=== PATIENT | female | born 1990 | race Caucasian/White ===

== ENCOUNTER 2016-05-22 09:14 | Day surgery (SDC) | payer OTHER ==
[2016-05-21 08:31] VITALS: BMI 30.1
[~2016-05-22 09:14] MED LIST: DEXAMETHASONE SOD PHOSPHATE 10 MG/ML 1 ML VIAL IV ONE; HYDROmorphone 1 MG/ML 1 ML SYRINGE IVP PRN; LACTATED RINGERS 1,000 ML IV SCH; MIDAZOLAM 2 MG/2 ML VIAL IV PRN; ONDANSETRON 4 MG/2 ML VIAL IVP ONE; SCOPOLAMINE 1.5MG/72HR PATCH TRANSDERM ONE; ceFAZolin 2 GM in SODIUM CHLORIDE 0.9% 100 ML IVPB ONE
--- NOTE | 2016-05-22 09:43 | P.GSHP ---
History of Present Illness H&P Date: 05/22/16 25 yrs old female presents with RUQ pain worsened with fatty food. US showed gallstones. No jaundice, fever, loss of weight . CBC and CMP normal ROS Additionally reports: Constitutional: No fever, chills or rigors. No weight loss or loss of appetite. HEENT: No difficulty with hearing, vision and swallowing. Lymphatic: No axillary, inguinal and cervical swellings. Endocrine: No thyroid disorders. Denies history of diabetes. Respiratory: No chest pain, shortness of breath, and cough. No hemoptysis. Cardiovascular: No palpitations, irregular HR Gastrointestinal: Denies heartburn. No change in bowel habits. No nausea or vomiting. Genitourinary: No increase in urinary frequency or urgency. No hematuria. Musculoskeletal: No back pain, joint stiffness or pain. Neurologic: No history of seizure disorder and headaches. Psychiatric: Denies depression or anxiety . No suicidal ideation. Hematologic: Denies any abnormal mucosal bleeding or easy bruising. Physical Exam Patient is a 25-year-old female. Constitutional: General Appearance: healthy-appearing, well-nourished, and well- developed. Level of Distress: NAD. Ambulation: ambulating normally. Psychiatric: Insight: good judgement. Orientation: to time, place, and person. Head: Head: normocephalic and atraumatic. Eyes: Lids and Conjunctivae: no discharge or pallor and non-injected. Sclerae: non-icteric. ENMT: Oropharynx: moist mucous membranes. Abdomen: Bowel Sounds: normal. Inspection and Palpation: no tenderness or guarding and soft and non-distended. Musculoskeletal:: Motor Strength and Tone: normal and normal tone. Joints, Bones , and Muscles: normal movement of all extremities. Extremities: no cyanosis or edema. Neurologic: Gait and Station: normal gait and station. Cranial Nerves: grossly intact. Assessment / Plan 1. Symptomatic cholelithiasis 2. Informed consent obtained from the patient after explaining the risks, benefits and potential complications of laparoscopic cholecystectomy including bleeding, infection, DVT , inadvertent bile duct injury and possibility of converting to open 3. Patient demonstrated understanding of the procedure and agreed to undergo lap liliana possible open 4. Expected post op course discussed including no heavy lifting >10 lbs for 6 weeks post surgery Preop orders: 1. Ancef 2 gm IVPB x1 2. Bilateral lower extremity SCDs 3. Heparin 5000 Units SQ injection x1 1. Cholelithiasis without obstruction K80.20: Calculus of gallbladder without cholecystitis without obstruction Past Medical History Past Medical History: Hypertension, Thyroid Disorder Additional Past Medical History / Comment(s): LOW THYROID, GESTATIONAL DIABETES , PALPITATIONS., STATES SHE SEEN PCP YESTERDAY (05/20/16) AND POSSIBLE UTI- STATES PCP SPOKE WITH DR MAHONEY & FLEX WEBSTER., NAUSEA. History of Any Multi-Drug Resistant Organisms: None Reported Past Surgical History: Adenoidectomy, Section Additional Past Surgical History / Comment(s): [place] teeth removal, colonization of cervix, LEEP PROCEDURE. Past Anesthesia/Blood Transfusion Reactions: No Reported Reaction Additional Past Anesthesia/Blood Transfusion Reaction / Comment(s): states as child aspirated during adenoidectomy (AGE 8) Past Psychological History: No Psychological Hx Reported Smoking Status: Never smoker Past Alcohol Use History: Rare Past Drug Use History: None Reported - Past Family History Mother Family Medical History: No Reported History Medications and Allergies Home Medications Medication Instructions Recorded Confirmed Type Labetalol [Trandate] 100 mg PO BID 02/23/15 05/20/16 History Ibuprofen [Motrin] 600 mg PO Q8HR PRN MDD ONLY DOSE 05/20/16 05/20/16 History IN LAST WEEK Levothyroxine Sodium [Synthroid] 150 mcg PO DAILY 05/20/16 05/20/16 History Nitrofurantoin Monohyd/M-Cryst 100 mg PO Q12HR 05/21/16 05/21/16 History [Macrobid] Allergies Allergy/AdvReac Type Severity Reaction Status Date / Time No Known Allergies Allergy Verified 05/20/16 14:49
[2016-05-22] MEDS ORDERED: LIDOCAINE 1% 20 ML VIAL (10MG/ML) FOR IV START INTRADERMA ONE (10:05)
[2016-05-22] MEDS ORDERED: HEPARIN SODIUM,PORCINE 5,000 UNIT/ML 1 ML VIAL SQ ONE (10:41)
[2016-05-22] MEDS ORDERED: MIDAZOLAM 2 MG/2 ML VIAL ONE (11:08)
[2016-05-22] MEDS ORDERED: PROPOFOL 10 MG/ML 20 ML VIAL IV ONE (11:08)
[2016-05-22] MEDS ORDERED: SUCCINYLCHOLINE CHLORIDE 100 MG/5 ML SYR IV ONE (11:08)
[2016-05-22] MEDS ORDERED: HYDROmorphone (PF) 1 MG/ML ONE (11:08)
[2016-05-22] MEDS ORDERED: NEOSTIGMINE 1 MG/ML 10 ML VIAL ONE (11:08)
[2016-05-22] MEDS ORDERED: GLYCOPYRROLATE 0.2 MG/ML 2 ML VIAL ONE (11:08)
[2016-05-22] MEDS ORDERED: ROCURONIUM BROMIDE 10 MG/ML 10 ML VIAL IV ONE (11:08)
[2016-05-22] MEDS ORDERED: fentaNYL (PF) 50 MCG/ML 2 ML AMP ONE (11:08)
[2016-05-22] MEDS ORDERED: LABETALOL 5 MG/ML VIAL MDV ONE (11:08)
[2016-05-22] MEDS ORDERED: LIDOCAINE 1% INJ 10MG/ML (20 ML MDV) ONE (11:08)
[2016-05-22] MEDS ORDERED: BUPIVACAIN-EPI 0.25%-1:200,000 30 ML VIAL SQ ONE ×3 (11:29)
[2016-05-22] MEDS ORDERED: LACTATED RINGERS 1,000 ML IV ONE (11:52)
[2016-05-22 12:13] VITALS: TEMP 97
--- NOTE | 2016-05-22 12:34 | P.OP ---
Date of Procedure: 05/22/16 Preoperative Diagnosis: Symptomatic cholelithiasis Hypertension Postoperative Diagnosis: Same Procedure(s) Performed: Laparoscopic cholecystectomy Anesthesia: NIKKI, local Surgeon: Safia Puente Pathology: other Condition: stable Disposition: PACU Indications for Procedure: 25 years old female presents with right upper quadrant pain. Ultrasound showed gallstones. Informed consent obtained and patient elected to undergo laparoscopic cholecystectomy possible open. The risks, benefits and potential complications include bleeding, infection, inadvertent bile duct injury were explained and patient did undergo the procedure Description of Procedure: The patient was brought to the operating room and placed in supine position with both arms out. General anesthesia with endotracheal intubation was performed as per anesthesia team. Chlorhexidine was used to prep the abdomen followed by application of sterile drapes. A timeout was performed to verify correct patient and correct procedure. Patient was confirmed to receive perioperative IV antibiotics , heparin 5000 units subcutaneous injection and bilateral SCDs were placed. A 5 mm skin incision was made below the left costal margin at the anterior axillary line. A Veress needle was inserted and pneumoperitoneum was established to a pressure of 15 mmHg. A 5 mm Optiview trocar was loaded on a 5 mm 30 laparoscope and the peritoneal cavity was entered under direct vision using the Optiview technique. Additional 5 mm trocar was placed in the supraumbilical location and two 5 mm trocars along the right subcostal margin. The left 5 mm trocar was upsized to 10mm. The patient was placed in reverse Trendelenburg with right side up. The fundus of the gallbladder was grasped with an atraumatic grasper and was retracted over the dome of the liver. The infundibulum was grasped with an atraumatic grasper and retracted towards the pelvis to expose the Calot's triangle. Lateral and medial peritoneal attachment of the gallbladder bladder was dissected. Circumferential dissection was carried out around the cystic artery and the cystic duct to obtain adequate length for clip application. All the surrounding fibrofatty tissue were removed. Critical view was obtained with cystic duct and cystic artery as the only two structures entering the gallbladder. Two clips were applied on the patient's side and one on the specimen side on the cystic duct first followed by the cystic artery. Endoshears were used to divide the cystic duct and the cystic artery. The gallbladder was taken off the liver bed using a L-hook. It was placed in an endocatch specimen bag and removed through the 10mm port. The gallbladder was passed off as a specimen. The abdominal cavity was inspected. The clips on the cystic duct and cystic artery stump were intact and no bleeding noted from the liver bed. All the trocar sites were examined and no evidence of bleeding. The 10mm port site was closed with two transfascial sutures of 0 Vicryl using a Rajinder Madi device. The pneumoperitoneum was evacuated and all the trocars were removed. Local anesthetic was infiltrated along the trocar sites and incisions were closed using 4-0 Monocryl followed by application of Dermabond skin glue. The sponge, instrument and needle count were correct x2. Patient was extubated and taken to post anesthesia care unit in stable condition.
[2016-05-22] MEDS ORDERED: PROMETHAZINE INJ 25 MG/ML 1 ML VIAL IVPB ONE (13:31)
[2016-05-22] MEDS ORDERED: HYDROcodone/APAP 5-325MG 1 EACH TAB PO ONE ×2 (13:50→14:00)
[2016-05-22 14:19] VITALS: RESP 18
[2016-05-22 15:25] VITALS: BP 116/72; PULSE 68
== END 2016-05-22 15:26 | disposition home or self-care (01) ==
LOC: OR 09:14
PROVIDERS: ATTEND Surgery
DX: K80.20 Calculus of gallbladder without cholecystitis without obstruction (principal); I10 Essential (primary) hypertension; E07.9 Disorder of thyroid, unspecified; Z79.2 Long term (current) use of antibiotics; Z79.1 Long term (current) use of non-steroidal anti-inflammatories (NSAID); Z79.899 Other long term (current) drug therapy
CPT/HCPCS: 81025; 47562; J2250; J1644; J1100; J2550; J2710; J0690; J2405; J2001; J3010; J1170; J0330; J2704; 88304

== ENCOUNTER → 2016-11-13 | Outpatient (CLI) | payer OTHER ==
[2016-11-19 19:38] LABS: Total, Free (MN + NMN) 113 pg/mL (< OR = 205)
== END | disposition home or self-care (01) ==
LOC: LABWHC1 08:57
PROVIDERS: ATTEND Internal Medicine
DX: I15.9 Secondary hypertension, unspecified (principal)
CPT/HCPCS: 36415; 82088; 83835; 84244

== ENCOUNTER → 2016-12-17 | Outpatient (CLI) | payer OTHER | END | disposition home or self-care (01) | LOC: LABWHC1 08:37 | PROVIDERS: ATTEND Internal Medicine | DX: E03.9 Hypothyroidism, unspecified (principal) | CPT/HCPCS: 36415; 84443 ==

== ENCOUNTER → 2017-02-16 | Outpatient (CLI) | payer OTHER ==
[2017-02-16 17:44] LABS: Basophils % (A) 1 %; Eosinophils # (A) 0.1 k/uL (0-0.7); Eosinophils % (A) 2 %; HCT 39.6 % (34.0-46.0); Lymphocytes # (A) 2.1 k/uL (1.0-4.8); Lymphocytes % (A) 28 %; MCH 29.2 pg (25.0-35.0); MCHC 32.7 g/dL (31.0-37.0); MCV 89.3 fL (80.0-100.0); Mean Platelet Volume 7.3; Monocytes # (A) 0.4 k/uL (0-1.0); Monocytes % (A) 6 %; Neutrophils # (A) 4.8 k/uL (1.3-7.7); Neutrophils % (A) 62 %; Platelet Count 260 k/uL (150-450); RBC 4.43 m/uL (3.80-5.40); RDW 13.3 % (11.5-15.5); WBC 7.7 k/uL (3.8-10.6)
== END | disposition home or self-care (01) ==
LOC: LABPAT 16:18
PROVIDERS: ATTEND Obstetrics & Gynecology
DX: Z01.812 Encounter for preprocedural laboratory examination (principal); O03.9 Complete or unspecified spontaneous abortion without complication
CPT/HCPCS: 36415; 85025

== ENCOUNTER → 2017-02-16 | Outpatient (CLI) | payer OTHER ==
[2017-02-16 18:17] LABS: T4, Free (Free Thyroxine) 1.22 ng/dL (0.78-2.19)
== END | disposition home or self-care (01) ==
LOC: LABWHC1 16:48
PROVIDERS: ATTEND Internal Medicine Endocrinology, Diabetes & Metabolism
DX: E06.3 Autoimmune thyroiditis (principal)
CPT/HCPCS: 36415; 84439; 84443; 85025

== ENCOUNTER 2017-02-19 07:29 | Day surgery (SDC) | payer OTHER ==
[2017-02-18 08:49] VITALS: BMI 29.5
[~2017-02-19 07:29] MED LIST changes: -HYDROmorphone 1 MG/ML 1 ML SYRINGE IVP PRN; +MORPHINE SULFATE 4 MG/ML SYRINGE IV PRN; +Pre Op ABX Message 1 EACH MISC MISCELLANE ONE; -ceFAZolin 2 GM in SODIUM CHLORIDE 0.9% 100 ML IVPB ONE
[2017-02-19] MEDS ORDERED: LIDOCAINE 1% INJ 10MG/ML (20 ML MDV) ONE (08:36)
[2017-02-19] MEDS ORDERED: KETOROLAC 30 MG/ML 1 ML VIAL ONE (08:36)
[2017-02-19] MEDS ORDERED: fentaNYL (PF) 50 MCG/ML 2 ML AMP ONE (08:36)
[2017-02-19] MEDS ORDERED: MIDAZOLAM 2 MG/2 ML VIAL ONE (08:36)
[2017-02-19] MEDS ORDERED: PROPOFOL 10 MG/ML 20 ML VIAL IV ONE (08:36)
[2017-02-19] MEDS ORDERED: KETOROLAC 30 MG/ML 1 ML VIAL IVP PRN (09:13)
[2017-02-19] MEDS ORDERED: ONDANSETRON 4 MG/2 ML VIAL IVP PRN (09:13)
[2017-02-19] MEDS ORDERED: IBUPROFEN 600 MG TAB PO PRN (09:13)
[2017-02-19] MEDS ORDERED: Acetaminophen-Codeine 300-30mg TAB PO PRN ×2 (09:13)
[2017-02-19] MEDS ORDERED: SIMETHICONE 80 MG CHEWABLE PO PRN (09:13)
[2017-02-19] MEDS ORDERED: diphenhydrAMINE 50 MG/ML 1 ML VIAL IVP PRN (09:13)
[2017-02-19] MEDS ORDERED: METOCLOPRAMIDE 5 MG/ML 2 ML VIAL IVP PRN (09:13)
[2017-02-19] MEDS ORDERED: LACTATED RINGERS 1,000 ML IV SCH (09:15)
[2017-02-19 09:19] VITALS: TEMP 97.6
[2017-02-19] MEDS ORDERED: SODIUM CHLORIDE 0.9% 1,000 ML IV ONE (09:19)
--- NOTE | 2017-02-19 09:20 | P.OP ---
Date of Procedure: 02/19/17 Preoperative Diagnosis: #1. 7+ weeks missed Postoperative Diagnosis: Same Procedure(s) Performed: #1. Dilation and aspiration curettage Anesthesia: other (Gen. by face mask) Surgeon: Fam Celeste Estimated Blood Loss (ml): 150 IV fluids (ml): 650 Urine output (ml): 50 Pathology: other (Intrauterine contents) Condition: stable Disposition: PACU Operative Findings: Preoperative pelvic examination demonstrated a roughly 8 week retroverted mobile normal shaped uterus with normal adnexa bilaterally. Intraoperatively, the uterus sounded to approximately 10 cm. A #9 curved aspiration curet was utilized and tissue was seen passing through the tubing on the first 3 passes with aspiration while not on the last. Using the sharp curet, the typical gritty texture was encountered. There was no ongoing bleeding at the end of the surgery and the uterus felt appreciably smaller. Description of Procedure: The patient was prepped and draped in usual fashion after general anesthesia was administered by the anesthesiologist. A weighted speculum was placed and the bladder drained of approximately 50 mL of clear inna urine. The anterior lip of the cervix was grasped with a single-tooth tenaculum and uterus sounded to approximately 10 cm. Serial dilation was carried out to admit a #9 curved aspiration curet. This was placed to the fundus of the uterus and suction applied. After adequate suction had been built, thorough circumferential aspiration curettage was carried out from the fundus to the cervix with tissue being seen passing through the tubing on the first 2 passes. A sharp curette was then introduced into the in vitro cavity and thorough sharp curettage carried out in circumferential fashion with no significant tissue returned and the typical gritty texture felt throughout. Another pass was made with the aspiration curet which time one small piece of tissue seen passing through the tubing necessitating a further pass with the aspiration curet. This final pass demonstrated no further tissue. All instrumentation was removed. There is no ongoing active bleeding either from the cervix or from the tenaculum site. Estimated blood loss for the entire case was approximately 150 mL. There were no complications. All sponge, instrument, and needle counts were correct. The patient tolerated the procedure well and proceeded to the recovery room in stable condition.
[2017-02-19 10:34] VITALS: BP 127/89; PULSE 88; RESP 18
== END 2017-02-19 10:58 | disposition home or self-care (01) ==
LOC: OR 07:29
PROVIDERS: ATTEND Obstetrics & Gynecology
DX: O02.1 Missed abortion (principal); I10 Essential (primary) hypertension; E03.9 Hypothyroidism, unspecified; Z79.1 Long term (current) use of non-steroidal anti-inflammatories (NSAID); Z79.899 Other long term (current) drug therapy; Z82.49 Family history of ischemic heart disease and other diseases of the circulatory system
CPT/HCPCS: 59820; 86900; 86901; 86850; 36415; J2250; J1100; J2405; J2001; J3010; J1885; J2704; 88305; 88341; 88342

== ENCOUNTER 2017-06-15 17:21 | Emergency (ER) | payer OTHER ==
[2017-06-15 17:41] VITALS: TEMP 98.6
[2017-06-15 18:09] LABS: Appearance,Urine Clear (Clear); Bacteria,Urine Occasional /hpf; Bilirubin,Urine Negative (Negative); Blood,Urine Small (Negative); Color,Urine Yellow; Glucose,Urine (UA) Negative (Negative); Ketones,Urine Negative (Negative); Leukocyte Esterase,Urine Negative (Negative); Mucus,Urine Rare /hpf; Nitrite,Urine Negative (Negative); PH, Urine 6.5 (5.0-8.0); Protein,Urine Negative (Negative); RBC,Urine 4 /hpf (0-5); Specific Gravity,Urine 1.012 (1.001-1.035); Squamous Epithelial Cell,Urine 1 /hpf (0-4); Urobilinogen,Urine <2.0 mg/dL (<2.0); WBC,Urine 1 /hpf (0-5)
--- NOTE | 2017-06-15 18:12 | ED ---
General Adult HPI - General Stated complaint: Vaginal Bleeding 12 weeks Time Seen by Provider: 06/15/17 17:36 Source: patient, RN notes reviewed Mode of arrival: ambulatory Limitations: no limitations - History of Present Illness Initial comments: 26-year-old female presents emergency from chief complaint of vaginal bleeding early . Patient believes that she is approximately 12 weeks . Patient's ENVIRONMENTAL SERVICES FLOOR TECH is Dr. Smith. Patient states that she's had several cervical surgery secondary to cancer cells. She did have an appointment an ultrasound at 7 weeks for this and was advised to come in for any bleeding or abnormal symptoms. She states she started bleeding she states her office is closed so she came the emergency Department. She has minimal cramping. Patient is A2. She states that she had a twin with miscarriage in February. Denies any dysuria no hematuria. - Related Data Home Medications Medication Instructions Recorded Confirmed Labetalol [Trandate] 100 mg PO BID 02/23/15 06/15/17 Levothyroxine Sodium [Synthroid] 150 mcg PO DAILY 05/20/16 06/15/17 Doxylamine Succinate [Unisom] 25 mg PO HS 06/15/17 06/15/17 Pyridoxine [Vitamin B-6] 50 mg PO HS 06/15/17 06/15/17 Allergies Allergy/AdvReac Type Severity Reaction Status Date / Time No Known Allergies Allergy Verified 06/15/17 17:48 Review of Systems ROS Statement: Those systems with pertinent positive or pertinent negative responses have been documented in the HPI. ROS Other: All systems not noted in ROS Statement are negative. Past Medical History Past Medical History: Hypertension, Thyroid Disorder Additional Past Medical History / Comment(s): gestational diabetes History of Any Multi-Drug Resistant Organisms: None Reported Past Surgical History: Adenoidectomy, Section, Cholecystectomy Additional Past Surgical History / Comment(s): [place] teeth removal, CERVICAL SURGERIES Past Anesthesia/Blood Transfusion Reactions: Motion Sickness, Postoperative Nausea & Vomiting (PONV) Additional Past Anesthesia/Blood Transfusion Reaction / Comment(s): "states as child aspirated during adenoidectomy" Past Psychological History: No Psychological Hx Reported Smoking Status: Never smoker Past Alcohol Use History: None Reported Past Drug Use History: None Reported - Past Family History Mother Family Medical History: No Reported History General Exam Limitations: no limitations General appearance: alert, in no apparent distress Head exam: Present: atraumatic, normocephalic, normal inspection Eye exam: Present: normal appearance, PERRL, EOMI. Absent: scleral icterus, conjunctival injection, periorbital swelling ENT exam: Present: normal exam, normal oropharynx, mucous membranes moist Neck exam: Present: normal inspection, full ROM. Absent: tenderness, meningismus, lymphadenopathy Respiratory exam: Present: normal lung sounds bilaterally. Absent: respiratory distress, wheezes, rales, rhonchi, stridor Cardiovascular Exam: Present: regular rate, normal rhythm, normal heart sounds. Absent: systolic murmur, diastolic murmur, rubs, gallop, clicks GI/Abdominal exam: Present: soft, normal bowel sounds. Absent: distended, tenderness, guarding, rebound, rigid Course Vital Signs 06/15/17 17:34 Temperature 98.6 F Pulse Rate 103 H Respiratory 20 Rate Blood Pressure 167/78 O2 Sat by Pulse 99 Oximetry Medical Decision Making - Medical Decision Making 26-year-old female presents for vaginal bleeding early . Patient had hCG, urinalysis and ultrasound. Ultrasound does not reveal any comp locating fractures. Patient does not require Auralgan. Patient will be discharged follow-up dr Smith tomorrow return parameters were discussed. - Lab Data Lab Results 06/15/17 Range/Units 17:40 Urine Color Yellow Urine Appearance Clear (Clear) Urine pH 6.5 (5.0-8.0) Ur Specific [place] 1.012 (1.001-1.035) Urine Protein Negative (Negative) Urine Glucose (UA) Negative (Negative) Urine Ketones Negative (Negative) Urine Blood Small H (Negative) Urine Nitrite Negative (Negative) Urine Bilirubin Negative (Negative) Urine Urobilinogen <2.0 (<2.0) mg/dL Ur Leukocyte Esterase Negative (Negative) Urine RBC 4 (0-5) /hpf Urine WBC 1 (0-5) /hpf Ur Squamous Epith Cells 1 (0-4) /hpf Urine Bacteria Occasional H (None) /hpf Urine Mucus Rare H (None) /hpf Disposition Clinical Impression: Threatened miscarriage Disposition: HOME SELF-CARE Condition: Stable Instructions: Threatened Miscarriage (ED) Additional Instructions: Please return to the Emergency Department if symptoms worsen or any other concerns. Is patient prescribed a controlled substance at d/c from ED?: No Referrals: Dori Montero MD [Primary Care Provider] - 1-2 days Time of Disposition: 18:48
--- NOTE | 2017-06-15 18:26 | US ---
EXAMINATION TYPE: Transabdominal DATE OF EXAM: 05/11/17 COMPARISON: NONE CLINICAL HISTORY: Pain. EXAM PERFORMED: Transabdominal (TA) EXAM MEASUREMENTS: GESTATIONAL AGE / DATING Physician Established: (11 weeks/5 days) EDC: 12/30/2017 Dates by LMP: (11 weeks/5 days) EDC: 12/30/2017 Dates by First Scan: Not available Dates by Current Scan for: (11 weeks/ days) EDC: 12/29/17 MATERNAL ANATOMY Uterus: 10.5 x 9.4 x 10.4 Right Ovary: 3.1 x 2.4 x 2.1 Left Ovary: not visualized Post CDS / Adnexa: wnl Presence of free fluid: no GESTATION / SURVEY CRL: 5.2 (11 weeks/6 days) Yolk Sac (normal less than 6mm): not seen on today's study Heart Rate: 174 bpm Rhythm: Normal IUP: Viable IUP Date of LMP: 03/25/17 Beta HcG (if available): Not available at this time IMPRESSION: Ultrasound gestational age is 11 weeks 6 days. I see no complicating process.
[2017-06-15 19:14] VITALS: BP 136/84; PULSE 83; RESP 18
== END 2017-06-15 19:14 | disposition home or self-care (01) ==
LOC: EC 17:21
DX: O20.0 Threatened abortion (principal); O16.1 Unspecified maternal hypertension, first trimester; O99.281 Endocrine, nutritional and metabolic diseases complicating pregnancy, first trimester; E07.9 Disorder of thyroid, unspecified; Z79.899 Other long term (current) drug therapy; Z86.32 Personal history of gestational diabetes; Z90.49 Acquired absence of other specified parts of digestive tract; Z98.890 Other specified postprocedural states; Z3A.12 12 weeks gestation of pregnancy
CPT/HCPCS: 36415; 76801; 76817; 81001; 84702; 99284

== ENCOUNTER 2017-12-23 09:06 | Inpatient (IN) | payer OTHER ==
[2017-12-23] MEDS ORDERED: ceFAZolin IN SWFI 2 GM/20 ML SYRINGE IVP ONE (09:58)
[2017-12-23] MEDS ORDERED: CITRIC ACID-SODIUM CITRATE 15 ML CUP PO ONE (09:58)
[2017-12-23] MEDS: LACTATED RINGERS 1,000 ML IV SCH ×4 (10:10→22:09)
[2017-12-23 10:25] LABS: Basophils % (A) 0 %; Eosinophils # (A) 0.2 k/uL (0-0.7); Eosinophils % (A) 2 %; HCT 33.3 % (34.0-46.0); HGB 11.1 gm/dL (11.4-16.0); Hypochromasia Slight; Lymphocytes # (A) 1.8 k/uL (1.0-4.8); Lymphocytes % (A) 17 %; MCH 26.9 pg (25.0-35.0); MCHC 33.4 g/dL (31.0-37.0); MCV 80.6 fL (80.0-100.0); Mean Platelet Volume 6.9; Monocytes # (A) 0.5 k/uL (0-1.0); Monocytes % (A) 5 %; Neutrophils % (A) 74 %; Platelet Count 273 k/uL (150-450); Poikilocytosis Slight; RBC 4.13 m/uL (3.80-5.40); WBC 10.8 k/uL (3.8-10.6)
[2017-12-23 10:39] VITALS: BMI 41.5
[2017-12-23] MEDS ORDERED: MORPHINE SULFATE (PF) 0.3 MG/0.3 ML SYR ONE (12:04)
[2017-12-23] MEDS ORDERED: OXYTOCIN 10 UNIT/ML 1 ML VIAL ONE (12:04)
[2017-12-23] MEDS ORDERED: NALBUPHINE 10 MG/ML VIAL (10ML MDV) ONE (12:04)
[2017-12-23] MEDS ORDERED: KETOROLAC 30 MG/ML 1 ML VIAL ONE (12:04)
[2017-12-23] MEDS ORDERED: fentaNYL (PF) 50 MCG/ML 2 ML AMP ONE (12:04)
[2017-12-23] MEDS ORDERED: ONDANSETRON 4 MG/2 ML VIAL ONE (12:04)
[2017-12-23] MEDS ORDERED: NALOXONE 0.4 MG/ML 1 ML VIAL IV PRN (13:10)
[2017-12-23] MEDS ORDERED: SIMETHICONE 80 MG CHEWABLE PO PRN (13:10)
[2017-12-23] MEDS ORDERED: diphenhydrAMINE 50 MG/ML 1 ML VIAL IVP PRN ×4 (13:10→16:17)
[2017-12-23] MEDS ORDERED: METOCLOPRAMIDE 5 MG/ML 2 ML VIAL IVP PRN (13:10)
[2017-12-23] MEDS ORDERED: KETOROLAC 30 MG/ML 1 ML VIAL IVP PRN (13:10)
[2017-12-23] MEDS ORDERED: HYDROcodone/APAP 5-325MG 1 EACH TAB PO PRN (13:10)
[2017-12-23] MEDS ORDERED: LANOLIN CREAM 5 GM TUBE TOPICAL PRN (13:10)
[2017-12-23] MEDS ORDERED: ZOLPIDEM 5 MG TAB PO PRN (13:10)
[2017-12-23] MEDS ORDERED: ONDANSETRON 4 MG/2 ML VIAL IVP PRN (13:10)
[2017-12-23] MEDS ORDERED: ACETAMINOPHEN TAB 325 MG TAB PO PRN (13:10)
[2017-12-23] MEDS ORDERED: HYDROcodone/APAP 7.5-325MG 1 EACH TAB PO PRN (13:10)
[2017-12-23] MEDS ORDERED: diphenhydrAMINE 50 MG CAP PO PRN (13:10)
[2017-12-23] MEDS ORDERED: diphenhydrAMINE 25 MG CAP PO PRN (13:10)
[2017-12-23] MEDS ORDERED: OXYTOCIN 20 UNITS/1000 ML NS 1,000 ML IV SCH (13:15)
--- NOTE | 2017-12-23 13:17 | P.HPOB ---
History of Present Illness H&P Date: 12/23/17 Chief Complaint: 39-0/7 weeks, previous section 2, requesting repeat The patient is a 27-year-old 5 para 2021 admitted at 39-0/7 weeks as established by last menstrual period and confirmed by seven-week ultrasound. She is admitted for repeat low transverse section having undergone 2 previous sections. She at this time is declining intraoperative tubal ligation. She is a known chronic hypertensive and has been on labetalol 100 mg twice daily through the majority the with an increased to 3 times daily at the end of the third trimester. Blood pressures have been relatively stable and there is no evidence of preeclampsia. She additionally has fairly significant hypothyroidism for which she sees an wedger and gluer. On admission , all signs are reassuring. Group B strep status is negative. Obstetrical history : 5 para 2021 with 2 term deliveries and 2 early miscarriages one of which required D&C. Current statistics are listed in history of present illness. EDC of 12/30/2017 was established by last menstrual period and confirmed by seven-week ultrasound. Laboratory workup done Schutze blood type of O+ with a negative antibody screen. Rubella status is immune. The remainder of the workup was within normal limits. Early Glucola was normal as was second trimester Glucola. Thyroid function tests were normal throughout the as well. Group B strep status is negative. Gynecologic history: Unremarkable with no history of any significant infections to include STDs that she has remote history of HSV for which she has had no lesions during the and has not required prophylaxis. Review of Systems Review of systems is confined to history of present illness. Past Medical History Past Medical History: Hypertension, Thyroid Disorder Additional Past Medical History / Comment(s): gestational diabetes-NOT WITH THIS History of Any Multi-Drug Resistant Organisms: None Reported Past Surgical History: Adenoidectomy, Section, Cholecystectomy Additional Past Surgical History / Comment(s): [place] teeth removal, CERVICAL SURGERIES Past Anesthesia/Blood Transfusion Reactions: Motion Sickness, Postoperative Nausea & Vomiting (PONV) Additional Past Anesthesia/Blood Transfusion Reaction / Comment(s): "states as child aspirated during adenoidectomy" Past Psychological History: No Psychological Hx Reported Smoking Status: Never smoker Past Alcohol Use History: None Reported Past Drug Use History: None Reported - Past Family History Mother Family Medical History: Hypertension Medications and Allergies Home Medications Medication Instructions Recorded Confirmed Type Labetalol [Trandate] 100 mg PO BID 02/23/15 12/23/17 History Levothyroxine Sodium [Synthroid] 150 mcg PO DAILY 05/20/16 12/23/17 History Allergies Allergy/AdvReac Type Severity Reaction Status Date / Time No Known Allergies Allergy Verified 12/22/17 10:21 Exam Vital Signs Temp Pulse Resp BP Pulse Ox 12/23/17 09:55 97.7 F 115 H 18 140/87 99 Intake and Output 12/22/17 12/23/17 12/23/17 22:59 06:59 14:59 Other: Weight 113.398 kg In general, this is a well-developed, well-nourished white female in no acute distress. Her heart has a regular rhythm and rate without murmur. Her lungs are clear to auscultation bilateral in all bergeron. Her abdomen is gravid, nondistended, has normal active bowel sounds, soft, nontender, and without any palpable masses aside from uterine fundus. Her extremities are without any cyanosis, clubbing, or significant edema and are nontender to palpation bilaterally. Digital cervical examination is deferred. Results Result Diagrams: 12/23/17 10:13 Abnormal Lab Results - Last 24 Hours (Table) 12/23/17 Range/Units 10:13 WBC 10.8 H (3.8-10.6) k/uL Hgb 11.1 L (11.4-16.0) gm/dL Hct 33.3 L (34.0-46.0) % Neutrophils # 8.0 H (1.3-7.7) k/uL Assessment and Plan (1) Previous section Current Visit: Yes Status: Acute Code(s): Z98.89 - OTHER SPECIFIED POSTPROCEDURAL STATES * DO NOT USE * SNOMED Code(s): 922918881 (2) Term Current Visit: Yes Status: Acute Code(s): Z34.80 - ENCOUNTER FOR SUPRVSN OF NORMAL , UNSP TRIMESTER SNOMED Code(s): 39438912 Plan: The patient is admitted for repeat low transverse section. The risks and complications of the procedure have been thoroughly discussed and she has understood and agreed to proceed. She has declined intraoperative tubal ligation at this time.
--- NOTE | 2017-12-23 13:22 | P.OP ---
Date of Procedure: 12/23/17 Preoperative Diagnosis: #1. 39-0/7 weeks, previous section 2, requesting repeat #2. Chronic hypertension Postoperative Diagnosis: Same Procedure(s) Performed: #1. Repeat low transverse section Anesthesia: spinal Surgeon: Fam Celeste Head Of Commission Department #1: Bushra Lira Estimated Blood Loss (ml): 600 IV fluids (ml): 700 Urine output (ml): 400 Pathology: other (Placenta) Condition: stable Disposition: floor Operative Findings: Intraoperatively, the patient was noted to have some moderate scarring at the level of the fascia and muscles. The uterus itself demonstrated very little scarring. She was delivered of a viable 9 lbs. 11 oz. baby girl with Apgars of 9 at 1 minute and 9 at 5 minutes delivered in the occiput anterior position. The placenta was delivered manually, intact, and grossly normal although it was calcified with a grossly normal three-vessel cord. The uterus, tubes, and ovaries were otherwise entirely normal to inspection. Description of Procedure: The patient was prepped and draped in usual fashion after spinal anesthesia was administered by the anesthesiologist. A Pfannenstiel incision was made through pre-existing scar and extended into the abdominal cavity without difficulty. There was a mild to moderate amount of scarring at the level of fascia and rectus muscles. The bladder peritoneum was noted to be well distal to the site of the intended incision and was left intact. A 2 cm incision was made in the transverse plane of the lower uterine segment to enter the uterus at which time clear fluid was noted. The incision was extended both directions using the bandage scissors. The head was delivered up and through the incision where the nose and mouth were thoroughly suctioned. The remainder of the infant was delivered onto the field where the cord was doubly clamped, cut, and the passed for resuscitative measures with weight and Apgars as noted above. A segment of cord was doubly clamped, cut, and set aside should cord gases become necessary. The placenta was delivered manually and intact as noted above. The uterus was exteriorized and the interior cavity of the uterus swept of any remaining placental or membranous fragments. The margins of the uterine incision were grasped with Moore clamps and the incision closed in 2 layers. The first layer was a running locking stitch of 0 chromic catgut followed by a running imbricating layer of 0 chromic catgut without occasional locked stitch for hemostasis were necessary. Following the second layer there was a site at the left angle which appeared to be somewhat oozy and was made hemostatic with a [id number] stitch of 0 chromic catgut. The posterior cul -de-sac was suctioned using a guard and the uterine and ovarian findings were normal as noted above. The uterus was replaced within the abdominal cavity and the gutters swept of any remaining blood, fluid, or clot. The incision was reexamined and found to be hemostatic. The parietal peritoneum was loosely reapproximated in the layer of muscles examined and made hemostatic with the Bovie. The fascia was closed with 2 running stitches of 0 Vicryl proceeding from the lateral margins to the midpoint. The subcutaneous tissues were irrigated, made hemostatic with the Bovie, and reapproximated with a running stitch of 30 plain catgut. The skin was reapproximated with a running subcuticular stitch of 4-0 Vicryl followed by half-inch Steri-Strips placed with Mastisol. Estimated blood loss for the entire case was approximately 600 mL. There were no complications. All sponge, instrument, and needle counts were correct. The patient tolerated the procedure well and proceeded to the recovery room in stable condition. Both mother and infant are resting comfortably in recovery.
[2017-12-23] MEDS ORDERED: diphenhydrAMINE 50 MG/ML 1 ML VIAL IVP ONE (16:30)
[2017-12-23] MEDS: LABETALOL 100 MG TAB PO SCH (22:07)
[2017-12-23] MEDS: SENNOSIDES-DOCUSATE SODIUM 1 EACH TAB PO SCH (22:07)
[2017-12-24] MEDS: LACTATED RINGERS 1,000 ML IV SCH (07:21)
[2017-12-24 08:26] LABS: Basophils % (A) 0 %; Eosinophils # (A) 0.1 k/uL (0-0.7); Eosinophils % (A) 1 %; HCT 28.6 % (34.0-46.0); Hypochromasia Slight; Lymphocytes # (A) 1.1 k/uL (1.0-4.8); Lymphocytes % (A) 10 %; MCH 26.9 pg (25.0-35.0); MCHC 33.6 g/dL (31.0-37.0); Mean Platelet Volume 7.6; Monocytes # (A) 0.7 k/uL (0-1.0); Monocytes % (A) 6 %; Neutrophils # (A) 9.3 k/uL (1.3-7.7); Neutrophils % (A) 81 %; Platelet Count 247 k/uL (150-450); Poikilocytosis Slight; RBC 3.58 m/uL (3.80-5.40); RDW 14.8 % (11.5-15.5); WBC 11.5 k/uL (3.8-10.6)
[2017-12-24 08:36] LABS: HGB 9.6 gm/dL (11.4-16.0)
[2017-12-24] MEDS: SENNOSIDES-DOCUSATE SODIUM 1 EACH TAB PO SCH ×2 (09:29→19:59)
[2017-12-24] MEDS: LABETALOL 100 MG TAB PO SCH ×2 (09:29→20:02)
--- NOTE | 2017-12-24 10:58 | P.PNOBGPC ---
Subjective - Subjective Patient reports: Reports appetite normal, Reports voiding normally, Reports pain well controlled, Reports ambulating normally : doing well Objective - Vital Signs Latest vital signs: Vital Signs Temp Pulse Resp BP Pulse Ox 12/24/17 08:00 98.7 F 96 16 118/74 96 12/24/17 04:00 98 F 98 15 125/80 12/24/17 00:00 98 F 100 15 122/80 12/23/17 20:00 98 F 101 H 15 137/87 12/23/17 15:10 98.3 F 99 18 118/66 96 12/23/17 14:40 97.6 F 96 18 123/64 98 12/23/17 14:10 98.9 F 93 18 122/68 97 12/23/17 13:55 98.1 F 91 18 135/61 98 12/23/17 13:40 98.4 F 86 18 135/59 97 12/23/17 13:25 99.3 F 85 18 129/77 100 12/23/17 13:10 98.0 F 96 18 127/78 100 Intake and Output 12/23/17 12/24/17 12/24/17 22:59 06:59 14:59 Output Total 500 900 0 Balance -500 -900 0 Output: Urine 500 900 Uretheral (Vazquez) 300 Stool 0 Other: # Voids 1 2 - Exam Extremities: Present: normal Abdomen: Present: normal appearance, soft. Absent: distention, tenderness Incision: Present: normal, dry, intact Uterus: Present: normal, firm (The uterine fundus is tonic and nontender low the umbilicus.) - Labs Labs: Abnormal Lab Results - Last 24 Hours (Table) 12/24/17 Range/Units 07:13 WBC 11.5 H (3.8-10.6) k/uL RBC 3.58 L (3.80-5.40) m/uL Hgb 9.6 L D (11.4-16.0) gm/dL Hct 28.6 L (34.0-46.0) % Neutrophils # 9.3 H (1.3-7.7) k/uL Assessment and Plan (1) Previous section Current Visit: Yes Status: Acute Code(s): Z98.89 - OTHER SPECIFIED POSTPROCEDURAL STATES * DO NOT USE * SNOMED Code(s): 853584839 (2) Term Current Visit: Yes Status: Acute Code(s): Z34.80 - ENCOUNTER FOR SUPRVSN OF NORMAL , UNSP TRIMESTER SNOMED Code(s): 80517354 (3) S/P section Current Visit: Yes Status: Acute Code(s): Z98.89 - OTHER SPECIFIED POSTPROCEDURAL STATES * DO NOT USE * SNOMED Code(s): 548100075 Plan: Continue routine postoperative care. I have encouraged her to ambulate in the halls routinely. I anticipate discharge home tomorrow pending no complications.
--- NOTE | 2017-12-24 11:22 | P.PN ---
Progress Note - Text Progress Note Date: 12/24/17 Postoperative day 1 status post section under spinal anesthesia, and intrathecal morphine given for postoperative analgesia, patient doing well, there is no anesthesia related complications, Patient had no headache, vital signs stable , Assessment and plan= postop day 1 status post , doing well there is no anesthesia related complication.
[2017-12-24] MEDS: IBUPROFEN 600 MG TAB PO PRN ×2 (15:19→22:19)
[2017-12-25] MEDS: SENNOSIDES-DOCUSATE SODIUM 1 EACH TAB PO SCH (08:30)
[2017-12-25] MEDS: LABETALOL 100 MG TAB PO SCH (08:30)
[2017-12-25] MEDS: IBUPROFEN 600 MG TAB PO PRN (08:31)
[2017-12-25 09:15] VITALS: BP 129/90; PULSE 116; RESP 20; TEMP 98.1
--- NOTE | 2017-12-25 11:03 | P.DS ---
Providers Date of admission: 12/23/17 09:50 Expected date of discharge: 12/25/17 Attending physician: Fam Celeste Primary care physician: Stated None - Discharge Diagnosis(es) (1) Hypothyroid Current Visit: Yes Status: Acute (2) Hypertension affecting Current Visit: Yes Status: Acute (3) Previous section Current Visit: Yes Status: Acute (4) S/P section Current Visit: Yes Status: Acute (5) Term Current Visit: Yes Status: Acute Hospital Course: This is a 27-year-old 5 now para 3023 woman who is admitted at 39-0/7 weeks gestation for a scheduled repeat low transverse section. was complicated by maternal hypothyroidism and hypertension. Following admission she was taken to the operating room where she underwent a repeat low transverse section with findings significant for a female infant weighing 9 lbs. 11 oz. with Apgars of 9 at 1 minute and 9 at 5 minutes. Please see the operative report for details. Her course was unremarkable. Her postoperative blood pressures were in the 1 teens to 120s over 70s range for the most part with labetalol 100 mg twice a day. She did have significant lower extremity swelling however no redness or pain suggestive of DVT. Her incision was well healing and her lochia was decreasing. She was therefore discharged home on postoperative day #2 with routine instructions for postoperative care and follow-up. She will be seen in the office in 2 weeks' time for postop visit and blood pressure check. She is recommended to continue her labetalol 100 mg twice daily. Procedures: Repeat low transverse section Patient Condition at Discharge: Good Plan - Discharge Summary Discharge Rx Participant: No New Discharge Prescriptions: No Action Labetalol [Trandate] 100 mg PO BID Levothyroxine Sodium [Synthroid] 150 mcg PO DAILY Discharge Medication List Labetalol [Trandate] 100 mg PO BID 02/23/15 [History] Levothyroxine Sodium [Synthroid] 150 mcg PO DAILY 05/20/16 [History] Follow up Appointment(s)/Referral(s): Fam Celeste MD [STAFF PHYSICIAN] - 2 Weeks Activity/Diet/Wound Care/Special Instructions: Follow-up in 2 weeks after surgery in the office. Call the office with any concerning signs or symptoms including fever greater than 101, severe abdominal pain, heavy vaginal bleeding, signs of wound infection, increased swelling or redness of the lower extremities, signs of depression. No driving for 2 weeks after surgery. No heavy lifting or vigorous activity until reevaluated in the office. No intercourse for 6 weeks after delivery. Discharge Disposition: HOME SELF-CARE
== END 2017-12-25 12:20 | disposition home or self-care (01) | DRG 787 ==
LOC: 4FBP 09:50
PROVIDERS: ADMIT Obstetrics & Gynecology; ATTEND Obstetrics & Gynecology
PROC: 10D00Z1 Extraction of Products of Conception, Low, Open Approach (ICD-10-PCS; principal; 2017-12-23 12:00)
DX: O34.211 Maternal care for low transverse scar from previous cesarean delivery (principal); O10.02 Pre-existing essential hypertension complicating childbirth; Z37.0 Single live birth; Z3A.39 39 weeks gestation of pregnancy; Z82.49 Family history of ischemic heart disease and other diseases of the circulatory system; Z90.49 Acquired absence of other specified parts of digestive tract; O99.284 Endocrine, nutritional and metabolic diseases complicating childbirth; E03.9 Hypothyroidism, unspecified; Z86.32 Personal history of gestational diabetes; Z79.890 Hormone replacement therapy; Z79.899 Other long term (current) drug therapy
CPT/HCPCS: 85025; 86850; 86900; 86901; 88307

== ENCOUNTER 2018-08-14 08:43 | Emergency (ER) | payer OTHER ==
[2018-08-14 08:52] VITALS: RESP 18
--- NOTE | 2018-08-14 09:38 | ED ---
Eye Problem HPI - General Chief complaint: Eye Problems Stated complaint: Vision issues Time Seen by Provider: 08/14/18 08:55 Source: patient Mode of arrival: ambulatory Limitations: no limitations - History of Present Illness Initial comments: 27-year-old female presents emergency Department with chief complaint of visual disturbance. Patient states that this has been going on for a while but she has noticed it more last few days. She states when object is moving in front of her and she does not follow object she states it seems to be delayed or blurred. She occasionally states there is some jumpy vision. Patient does admit that she's had some ocular issues in the past in which she had a vitrous humor detachment and ophthalmology has told her that she may have visual floaters or defects for several years. Patient denies any ocular pain. She does wear glasses and has not had her Jennie checked in a while. Patient states this is symptoms that she's never exhibited for she states that she did go on cool which made her more worried that she has some sort of brain tumor. Patient has underlying Jed's disease and states that her TSH has been rapidly fluctuating in which she is also concerned about this. Patient denies any doubl e vision or current blurred vision at rest. She states that she tracts object that she has no symptoms. She has no with a headache, chest pain or shortness of breath patient does notice that symptoms are worsened with fatigue especially rate and afternoon to nighttime. Patient also adds that she was started on hydrochlorothiazide in April and states that she believes this may be contrary to her symptoms. She can think back she may have had symptoms for several months - Related Data Home Medications Medication Instructions Recorded Confirmed Labetalol [Trandate] 100 mg PO BID 02/23/15 12/23/17 Levothyroxine Sodium [Synthroid] 150 mcg PO DAILY 05/20/16 12/23/17 Allergies Allergy/AdvReac Type Severity Reaction Status Date / Time No Known Allergies Allergy Verified 08/14/18 08:52 Review of Systems ROS Statement: Those systems with pertinent positive or pertinent negative responses have been documented in the HPI. ROS Other: All systems not noted in ROS Statement are negative. Past Medical History Past Medical History: Hypertension, Thyroid Disorder Additional Past Medical History / Comment(s): gestational diabetes History of Any Multi-Drug Resistant Organisms: None Reported Past Surgical History: Adenoidectomy, Section, Cholecystectomy Additional Past Surgical History / Comment(s): [place] teeth removal, CERVICAL SURGERIES Past Anesthesia/Blood Transfusion Reactions: Motion Sickness, Postoperative Nausea & Vomiting (PONV) Additional Past Anesthesia/Blood Transfusion Reaction / Comment(s): "states as child aspirated during adenoidectomy" Past Psychological History: No Psychological Hx Reported Smoking Status: Never smoker Past Alcohol Use History: None Reported Past Drug Use History: None Reported - Past Family History Mother Family Medical History: Hypertension General Exam Limitations: no limitations General appearance: alert, in no apparent distress Head exam: Present: atraumatic, normocephalic, normal inspection Eye exam: Present: normal appearance, PERRL, EOMI, nystagmus (Looking to left). Absent: scleral icterus, conjunctival injection, periorbital swelling Pupils: Present: normal accommodation ENT exam: Present: normal exam, normal oropharynx, mucous membranes moist, TM's normal bilaterally Neck exam: Present: normal inspection, full ROM. Absent: tenderness, menin gismus, lymphadenopathy Respiratory exam: Present: normal lung sounds bilaterally. Absent: respiratory distress, wheezes, rales, rhonchi, stridor Cardiovascular Exam: Present: regular rate, normal rhythm, normal heart sounds. Absent: systolic murmur, diastolic murmur, rubs, gallop, clicks GI/Abdominal exam: Present: soft, normal bowel sounds. Absent: distended, tenderness, guarding, rebound, rigid Neurological exam: Present: alert, oriented X3, CN II-XII intact, reflexes normal, other (Finger to nose intact bilaterally without shooting). Absent: motor sensory deficit Skin exam: Present: warm, dry, intact, normal color. Absent: rash Course Vital Signs 08/14/18 08:45 Temperature 98.5 F Pulse Rate 103 H Respiratory 18 Rate Blood Pressure 154/100 O2 Sat by Pulse 98 Oximetry Medical Decision Making - Medical Decision Making 19-year-old female presented for visual disturbance. Patient symptoms have been ongoing this is not acute. Patient has no acute visual changes on visual acuity. Patient had extensive workup including CTs it today. There is no clot no aneurysm no masses. Patient has normal lab work. The advised that she should follow-up with her, marshall, historic interpreter Dr. wylie She may need further evaluation. She agrees this plan she does have slight nystagmus which may be causing her symptoms. - Lab Data Result diagrams: 08/14/18 09:35 08/14/18 09:35 Lab Results 08/14/18 08/14/18 08/14/18 Range/Units 09:35 09:35 09:35 WBC 6.3 (3.8-10.6) k/uL RBC 5.31 (3.80-5.40) m/uL Hgb 14.4 (11.4-16.0) gm/dL Hct 42.8 (34.0-46.0) % MCV 80.7 (80.0-100.0) fL MCH 27.1 (25.0-35.0) pg MCHC 33.6 (31.0-37.0) g/dL RDW 15.0 (11.5-15.5) % Plt Count 271 (150-450) k/uL Neutrophils % 64 % Lymphocytes % 27 % Monocytes % 5 % Eosinophils % 2 % Basophils % 1 % Neutrophils # 4.1 (1.3-7.7) k/uL Lymphocytes # 1.7 (1.0-4.8) k/uL Monocytes # 0.3 (0-1.0) k/uL Eosinophils # 0.1 (0-0.7) k/uL Basophils # 0.0 (0-0.2) k/uL Sodium 142 (137-145) mmol/L Potassium 3.7 (3.5-5.1) mmol/L Chloride 103 (98-107) mmol/L Carbon Dioxide 26 (22-30) mmol/L Anion Gap 13 mmol/L BUN 14 (7-17) mg/dL Creatinine 0.79 (0.52-1.04) mg/dL Est GFR (CKD-EPI)AfAm >90 (>60 ml/min/1.73 sqM) Est GFR (CKD-EPI)NonAf >90 (>60 ml/min/1.73 sqM) Glucose 116 H (74-99) mg/dL Calcium 9.9 (8.4-10.2) mg/dL Magnesium 2.2 (1.6-2.3) mg/dL Total Bilirubin 0.6 (0.2-1.3) mg/dL AST 22 (14-36) U/L ALT 27 (9-52) U/L Alkaline Phosphatase 88 (38-126) U/L Total Protein 8.2 (6.3-8.2) g/dL Albumin 5.2 H (3.5-5.0) g/dL TSH 3.030 (0.465-4.680) mIU/L Urine Color Urine Appearance (Clear) Urine pH (5.0-8.0) Ur Specific [place] (1.001-1.035) Urine Protein (Negative) Urine Glucose (UA) (Negative) Urine Ketones (Negative) Urine Blood (Negative) Urine Nitrite (Negative) Urine Bilirubin (Negative) Urine Urobilinogen (<2.0) mg/dL Ur Leukocyte Esterase (Negative) Urine RBC (0-5) /hpf Urine WBC (0-5) /hpf Ur Squamous Epith Cells (0-4) /hpf Urine Bacteria (None) /hpf Urine Mucus (None) /hpf Urine HCG, Qual Not Detected (Not Detectd) 08/14/18 Range/Units 09:35 WBC (3.8-10.6) k/uL RBC (3.80-5.40) m/uL Hgb (11.4-16.0) gm/dL Hct (34.0-46.0) % MCV (80.0-100.0) fL MCH (25.0-35.0) pg MCHC (31.0-37.0) g/dL RDW (11.5-15.5) % Plt Count (150-450) k/uL Neutrophils % % Lymphocytes % % Monocytes % % Eosinophils % % Basophils % % Neutrophils # (1.3-7.7) k/uL Lymphocytes # (1.0-4.8) k/uL Monocytes # (0-1.0) k/uL Eosinophils # (0-0.7) k/uL Basophils # (0-0.2) k/uL Sodium (137-145) mmol/L Potassium (3.5-5.1) mmol/L Chloride (98-107) mmol/L Carbon Dioxide (22-30) mmol/L Anion Gap mmol/L BUN (7-17) mg/dL Creatinine (0.52-1.04) mg/dL Est GFR (CKD-EPI)AfAm (>60 ml/min/1.73 sqM) Est GFR (CKD-EPI)NonAf (>60 ml/min/1.73 sqM) Glucose (74-99) mg/dL Calcium (8.4-10.2) mg/dL Magnesium (1.6-2.3) mg/dL Total Bilirubin (0.2-1.3) mg/dL AST (14-36) U/L ALT (9-52) U/L Alkaline Phosphatase (38-126) U/L Total Protein (6.3-8.2) g/dL Albumin (3.5-5.0) g/dL TSH (0.465-4.680) mIU/L Urine Color Yellow Urine Appearance Clear (Clear) Urine pH 6.0 (5.0-8.0) Ur Specific [place] 1.027 (1.001-1.035) Urine Protein Trace H (Negative) Urine Glucose (UA) Negative (Negative) Urine Ketones Negative (Negative) Urine Blood Moderate H (Negative) Urine Nitrite Negative (Negative) Urine Bilirubin Negative (Negative) Urine Urobilinogen <2.0 (<2.0) mg/dL Ur Leukocyte Esterase Negative (Negative) Urine RBC 150 H (0-5) /hpf Urine WBC 8 H (0-5) /hpf Ur Squamous Epith Cells 2 (0-4) /hpf Urine Bacteria Rare H (None) /hpf Urine Mucus Occasional H (None) /hpf Urine HCG, Qual (Not Detectd) Disposition Clinical Impression: Visual disturbance, Nystagmus Disposition: HOME SELF-CARE Condition: Stable Instructions (If sedation given, give patient instructions): Blurred Vision (ED) Additional Instructions: Please return to the Emergency Department if symptoms worsen or any other concerns. Is patient prescribed a controlled substance at d/c from ED?: No Referrals: Giorigo Cruz MD [Primary Care Provider] - 1-2 days Smith Wylie MD [STAFF PHYSICIAN] - 1-2 days Time of Disposition: 10:58
[2018-08-14 09:48] LABS: Basophils % (A) 1 %; Eosinophils # (A) 0.1 k/uL (0-0.7); Eosinophils % (A) 2 %; HCT 42.8 % (34.0-46.0); HGB 14.4 gm/dL (11.4-16.0); Lymphocytes # (A) 1.7 k/uL (1.0-4.8); Lymphocytes % (A) 27 %; MCH 27.1 pg (25.0-35.0); MCHC 33.6 g/dL (31.0-37.0); MCV 80.7 fL (80.0-100.0); Mean Platelet Volume 6.7; Monocytes # (A) 0.3 k/uL (0-1.0); Monocytes % (A) 5 %; Neutrophils # (A) 4.1 k/uL (1.3-7.7); Neutrophils % (A) 64 %; Platelet Count 271 k/uL (150-450); RBC 5.31 m/uL (3.80-5.40); WBC 6.3 k/uL (3.8-10.6)
[2018-08-14 09:57] LABS: ALT 27 U/L (9-52); AST 22 U/L (14-36); African American GFR (CKD) >90 (>60 ml/min/1.73 sqM); Albumin 5.2 g/dL (3.5-5.0); Alkaline Phosphatase 88 U/L (38-126); Anion Gap 13 mmol/L; Blood Urea Nitrogen 14 mg/dL (7-17); Calcium 9.9 mg/dL (8.4-10.2); Carbon Dioxide 26 mmol/L (22-30); Chloride 103 mmol/L (98-107); Glucose 116 mg/dL (74-99); Magnesium 2.2 mg/dL (1.6-2.3); Potassium 3.7 mmol/L (3.5-5.1); Sodium 142 mmol/L (137-145); Total Bilirubin 0.6 mg/dL (0.2-1.3); Total Protein 8.2 g/dL (6.3-8.2)
[2018-08-14 10:01] LABS: Appearance,Urine Clear (Clear); Bacteria,Urine Rare /hpf; Bilirubin,Urine Negative (Negative); Blood,Urine Moderate (Negative); Color,Urine Yellow; Glucose,Urine (UA) Negative (Negative); Ketones,Urine Negative (Negative); Leukocyte Esterase,Urine Negative (Negative); Mucus,Urine Occasional /hpf; Nitrite,Urine Negative (Negative); Protein,Urine Trace (Negative); RBC,Urine 150 /hpf (0-5); Specific Gravity,Urine 1.027 (1.001-1.035); Squamous Epithelial Cell,Urine 2 /hpf (0-4); Urobilinogen,Urine <2.0 mg/dL (<2.0)
--- NOTE | 2018-08-14 10:06 | CT ---
EXAMINATION TYPE: CT brain wo con DATE OF EXAM: 08/14/2018 COMPARISON: None HISTORY: visual disturbance, [facility] CT DLP: 1070.4 mGycm. Automated Exposure Control for Dose Reduction was Utilized. TECHNIQUE: CT scan of the head is performed without contrast. FINDINGS: There is no acute intracranial hemorrhage, mass effect, or midline shift identified. The ventricles and sulci are within normal limits in size. The globes are intact and the visualized sin uses are clear. Left vertebral is somewhat hyperdense which may be artifactual. Low density seen in t he right basal ganglia could be related to prominent Virchow-Dar spaces or tiny remote lacunar IMPRESSION: 1. No acute intracranial hemorrhage, mass effect, or midline shift is seen. Vertebral artery appears somewhat hyperdense which likely is artifactual correlate clinically. If there is clinical concern fo r acute thrombosis correlate with CTA [place].
--- NOTE | 2018-08-14 10:53 | CT ---
EXAMINATION TYPE: CT angio [facility] [place] [facility] [place] DATE OF EXAM: 08/14/2018 10:37 AM COMPARISON: 08/14/2018 HISTORY: Abn CT brain, visual changes, [facility] CT DLP: 684 mGycm Automated exposure control for dose reduction was used. TECHNIQUE: Performed with IV Contrast, patient injected with 81 mL of Isovue 300. . FINDINGS: There is ectasia of the left vertebral artery which enhances normally. Visualized vertebrobasilar and carotid systems are patent. Anterior, middle, posterior cerebral arteries appear patent. No sizable aneurysm or vascular malformation. IMPRESSION: NO ACUTE PROCESS.
[2018-08-14 11:47] VITALS: BP 140/99; PULSE 77; TEMP 98.1
== END 2018-08-14 11:49 | disposition home or self-care (01) ==
LOC: EC 08:43
DX: H55.00 Unspecified nystagmus (principal); H53.9 Unspecified visual disturbance; I10 Essential (primary) hypertension; E07.9 Disorder of thyroid, unspecified; Z79.899 Other long term (current) drug therapy; Z79.890 Hormone replacement therapy
CPT/HCPCS: 36415; 80053; 84443; 83735; 85025; 81001; 81025; 70496; 70450; 99284; Q9967

== ENCOUNTER 2019-01-15 14:32 | Emergency (ER) | payer OTHER ==
[2019-01-15 14:39] VITALS: RESP 18
[2019-01-15] MEDS ORDERED: SODIUM CHLORIDE 0.9% 1,000 ML IV STA ×2 (15:50)
[2019-01-15 16:26] LABS: HCT 43.8 % (34.0-46.0); HGB 15.1 gm/dL (11.4-16.0); MCH 29.4 pg (25.0-35.0); MCHC 34.6 g/dL (31.0-37.0); MCV 85.1 fL (80.0-100.0); Mean Platelet Volume 6.6; Platelet Count 270 k/uL (150-450); RBC 5.14 m/uL (3.80-5.40); RDW 12.6 % (11.5-15.5); WBC 8.3 k/uL (3.8-10.6)
[2019-01-15 16:36] LABS: ALT 22 U/L (9-52); AST 27 U/L (14-36); African American GFR (CKD) >90 (>60 ml/min/1.73 sqM); Albumin 5.4 g/dL (3.5-5.0); Alkaline Phosphatase 85 U/L (38-126); Anion Gap 12 mmol/L; Blood Urea Nitrogen 9 mg/dL (7-17); Calcium 10.1 mg/dL (8.4-10.2); Carbon Dioxide 23 mmol/L (22-30); Chloride 104 mmol/L (98-107); Glucose 100 mg/dL (74-99); Magnesium 1.9 mg/dL (1.6-2.3); Non-African American GFR(CKD) >90 (>60 ml/min/1.73 sqM); Potassium 4.5 mmol/L (3.5-5.1); Sodium 139 mmol/L (137-145); Total Protein 8.7 g/dL (6.3-8.2)
[2019-01-15 16:49] LABS: INR 1.1 (<1.2); Partial Thromboplastin Time 26.2 sec (22.0-30.0); Prothrombin Time 11.2 sec (9.0-12.0)
--- NOTE | 2019-01-15 16:54 | ED ---
General Adult HPI - General Chief complaint: Recheck/Abnormal Lab/Rx Stated complaint: High blood pressure, SOB, visual disturbances Time Seen by Provider: 01/15/19 15:34 Source: patient, RN notes reviewed, old records reviewed Mode of arrival: ambulatory Limitations: no limitations - History of Present Illness Initial comments: Medical is a 28-year-old female she presents emergency department today with chief complaint of blurry vision, and symptoms for the past 3 days. Patient states that she seemed have some pain in both of her eyes with movement as well. 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 Patient reports that her thyroid levels have been fluctuating for the past 6 months. Patient states that she did take 2 hypertension medications. She says she felt a hard blood pressure was elevated past few days. Patient states that she has had some occasional shortness of breath but denies any associated chest pain. Patient denies any headache at this time. She states that her vision just seems blurry and change. - Related Data Home Medications Medication Instructions Recorded Confirmed Levothyroxine Sodium [Synthroid] 150 mcg PO DAILY 05/20/16 08/14/18 Hydrochlorothiazide [Hydrodiuril] 25 mg PO DAILY 08/14/18 08/14/18 Allergies Allergy/AdvReac Type Severity Reaction Status Date / Time No Known Allergies Allergy Verified 01/15/19 14:35 Review of Systems ROS Statement: Those systems with pertinent positive or pertinent negative responses have been documented in the HPI. ROS Other: All systems not noted in ROS Statement are negative. Past Medical History Past Medical History: Hypertension, Thyroid Disorder Additional Past Medical History / Comment(s): gestational diabetes History of Any Multi-Drug Resistant Organisms: None Reported Past Surgical History: Adenoidectomy, Section, Cholecystectomy Additional Past Surgical History / Comment(s): [place] teeth removal, CERVICAL SURGERIES Past Anesthesia/Blood Transfusion Reactions: Motion Sickness, Postoperative Nausea & Vomiting (PONV) Additional Past Anesthesia/Blood Transfusion Reaction / Comment(s): "states as child aspirated during adenoidectomy" Past Psychological History: No Psychological Hx Reported Smoking Status: Never smoker Past Alcohol Use History: None Reported Past Drug Use History: None Reported - Past Family History Mother Family Medical History: Hypertension General Exam - General Exam Comments Initial Comments: 28 year old female, no distress. Limitations: no limitations General appearance: alert, in no apparent distress Head exam: Present: atraumatic, normocephalic, normal inspection Eye exam: Present: normal appearance, PERRL, EOMI. Absent: scleral icterus, conjunctival injection, periorbital swelling Pupils: Present: other (visual acutiy 20/70 bilaterally without glasses. No proptosis. EOM intact. ) ENT exam: Present: normal exam, mucous membranes moist, other Neck exam: Present: normal inspection. Absent: tenderness, meningismus, lymphadenopathy Respiratory exam: Present: normal lung sounds bilaterally. Absent: respiratory distress, wheezes, rales, rhonchi, stridor Cardiovascular Exam: Present: regular rate, normal rhythm, normal heart sounds. Absent: systolic murmur, diastolic murmur, rubs, gallop, clicks GI/Abdominal exam: Present: soft, normal bowel sounds. Absent: distended, tenderness, guarding, rebound, rigid Extremities exam: Present: normal inspection, full ROM, normal capillary refill. Absent: tenderness, pedal edema, joint swelling, calf tenderness Back exam: Present: normal inspection Neurological exam: Present: alert, oriented X3, CN II-XII intact Psychiatric exam: Present: normal affect, normal mood Skin exam: Present: warm, dry, intact, normal color. Absent: rash Course Vital Signs 01/15/19 01/15/19 01/15/19 14:35 16:24 18:32 Temperature 99.2 F 98.0 F Pulse Rate 110 H 93 98 Respiratory 18 18 18 Rate Blood Pressure 155/122 139/97 140/98 O2 Sat by Pulse 99 98 97 Oximetry EKG Findings - EKG Comments: EKG Findings:: EKG shows normal sinus rhythm cannot really anterior infarct agent determined. T wave antimanic strain. Part. Abnormal EKG. Ventricular rate of 92 bpm. Interval is 166 most seconds. QRS duration is 78 ms. QT QTc is 340/4:30 milliseconds. Medical Decision Making - Medical Decision Making 28 year old female with history of thyroid disorder with multiple complaints of elevated blood pressure at home, occasional shrotness of breath, anxiety and visual disturbances. Patient reports flashes and blurry vision, worse in 3 days. History of vitreos detachement. Patient TSH is normal, no thyroid storm concern at this time. PAtient labs and ekg show no changes. Patient has been following sy Barros from [facility]. Discussed case with Dr. Paulino whom discussed case with Dr. Barros. Patient would follow up with him tomorrow. Discussed return parameters. - Lab Data Result diagrams: 01/15/19 16:10 01/15/19 16:10 Lab Results 01/15/19 01/15/19 01/15/19 Range/Units 16:10 16:10 16:10 WBC 8.3 (3.8-10.6) k/uL RBC 5.14 (3.80-5.40) m/uL Hgb 15.1 (11.4-16.0) gm/dL Hct 43.8 (34.0-46.0) % MCV 85.1 (80.0-100.0) fL MCH 29.4 (25.0-35.0) pg MCHC 34.6 (31.0-37.0) g/dL RDW 12.6 (11.5-15.5) % Plt Count 270 (150-450) k/uL Neutrophils % (Manual) 62 % Lymphocytes % (Manual) 32 % Monocytes % (Manual) 4 % Eosinophils % (Manual) 2 % Neutrophils # (Manual) 5.15 (1.3-7.7) k/uL Lymphocytes # (Manual) 2.66 (1.0-4.8) k/uL Monocytes # (Manual) 0.33 (0-1.0) k/uL Eosinophils # (Manual) 0.17 (0-0.7) k/uL Nucleated RBCs 0 (0-0) /100 WBC Manual Slide Review Performed PT 11.2 (9.0-12.0) sec INR 1.1 (<1.2) APTT 26.2 (22.0-30.0) sec Sodium 139 (137-145) mmol/L Potassium 4.5 (3.5-5.1) mmol/L Chloride 104 (98-107) mmol/L Carbon Dioxide 23 (22-30) mmol/L Anion Gap 12 mmol/L BUN 9 (7-17) mg/dL Creatinine 0.61 (0.52-1.04) mg/dL Est GFR (CKD-EPI)AfAm >90 (>60 ml/min/1.73 sqM) Est GFR (CKD-EPI)NonAf >90 (>60 ml/min/1.73 sqM) Glucose 100 H (74-99) mg/dL Calcium 10.1 (8.4-10.2) mg/dL Magnesium 1.9 (1.6-2.3) mg/dL Total Bilirubin 1.0 (0.2-1.3) mg/dL AST 27 (14-36) U/L ALT 22 (9-52) U/L Alkaline Phosphatase 85 (38-126) U/L Troponin I (0.000-0.034) ng/mL NT-Pro-B Natriuret Pep pg/mL Total Protein 8.7 H (6.3-8.2) g/dL Albumin 5.4 H (3.5-5.0) g/dL TSH 1.180 (0.465-4.680) mIU/L 01/15/19 01/15/19 Range/Units 16:10 16:10 WBC (3.8-10.6) k/uL RBC (3.80-5.40) m/uL Hgb (11.4-16.0) gm/dL Hct (34.0-46.0) % MCV (80.0-100.0) fL MCH (25.0-35.0) pg MCHC (31.0-37.0) g/dL RDW (11.5-15.5) % Plt Count (150-450) k/uL Neutrophils % (Manual) % Lymphocytes % (Manual) % Monocytes % (Manual) % Eosinophils % (Manual) % Neutrophils # (Manual) (1.3-7.7) k/uL Lymphocytes # (Manual) (1.0-4.8) k/uL Monocytes # (Manual) (0-1.0) k/uL Eosinophils # (Manual) (0-0.7) k/uL Nucleated RBCs (0-0) /100 WBC Manual Slide Review PT (9.0-12.0) sec INR (<1.2) APTT (22.0-30.0) sec Sodium (137-145) mmol/L Potassium (3.5-5.1) mmol/L Chloride (98-107) mmol/L Carbon Dioxide (22-30) mmol/L Anion Gap mmol/L BUN (7-17) mg/dL Creatinine (0.52-1.04) mg/dL Est GFR (CKD-EPI)AfAm (>60 ml/min/1.73 sqM) Est GFR (CKD-EPI)NonAf (>60 ml/min/1.73 sqM) Glucose (74-99) mg/dL Calcium (8.4-10.2) mg/dL Magnesium (1.6-2.3) mg/dL Total Bilirubin (0.2-1.3) mg/dL AST (14-36) U/L ALT (9-52) U/L Alkaline Phosphatase (38-126) U/L Troponin I <0.012 (0.000-0.034) ng/mL NT-Pro-B Natriuret Pep 56 pg/mL Total Protein (6.3-8.2) g/dL Albumin (3.5-5.0) g/dL TSH (0.465-4.680) mIU/L - Radiology Data Radiology results: report reviewed Disposition Clinical Impression: Visual changes Disposition: HOME SELF-CARE Condition: Good Instructions (If sedation given, give patient instructions): Blurred Vision (ED), Visual Floaters (ED) Additional Instructions: Patient is a follow-up tomorrow Dr. Barros. Return to the emergency department if any alarming signs or symptoms occur. Is patient prescribed a controlled substance at d/c from ED?: No Referrals: None,Stated [Primary Care Provider] - 1-2 days Smith Barros MD [STAFF PHYSICIAN] - 1-2 days Time of Disposition: 18:11
[2019-01-15 16:56] LABS: Eosinophils # (M) 0.17 k/uL (0-0.7); Lymphocytes # (M) 2.66 k/uL (1.0-4.8); Monocytes # (M) 0.33 k/uL (0-1.0); Neutrophils # (M) 5.15 k/uL (1.3-7.7); Neutrophils % (M) 62 %; Nucleated Red Blood Cells 0 /100 WBC (0-0); Total Cells Counted 100
[2019-01-15 18:33] VITALS: BP 140/98; PULSE 98; TEMP 98
== END 2019-01-15 18:33 | disposition home or self-care (01) ==
LOC: EC 14:32
DX: H53.9 Unspecified visual disturbance (principal); R06.02 Shortness of breath; F41.9 Anxiety disorder, unspecified; E07.9 Disorder of thyroid, unspecified; I10 Essential (primary) hypertension; Z79.890 Hormone replacement therapy; Z79.899 Other long term (current) drug therapy
CPT/HCPCS: 36415; 80053; 83735; 83880; 84443; 84484; 85025; 85610; 85730; 93005; 96360; 96361; 99284

== ENCOUNTER → 2019-01-18 | Outpatient (CLI) | payer OTHER ==
[2019-01-19 02:02] LABS: Rheumatoid Factor, Qnt 6 IU/mL (0-15)
[2019-01-19 02:05] LABS: C Reactive Protein <0.4 mg/dL (0.0-0.8)
[2019-01-19 05:03] LABS: HIV 1 AB Non-Reactive (Non-Reactive); HIV 2 AB Non-Reactive (Non-Reactive); HIV AB P24 Non-Reactive (Non-Reactive); HIV P24 AG Non-Reactive (Non-Reactive)
[2019-01-19 08:06] LABS: Angiotensin-1 Converting Enz. 19 U/L (8-52)
[2019-01-19 12:28] LABS: HLA B27 NEGATIVE
== END | disposition home or self-care (01) ==
LOC: LABWHC1 17:12
PROVIDERS: ATTEND Ophthalmology
DX: H20.9 Unspecified iridocyclitis (principal)
CPT/HCPCS: 36415; 82164; 83519; 85549; 85652; 86140; 86431; 86618; 86780; 86812; 87390

== ENCOUNTER → 2019-08-15 | Outpatient (CLI) | payer OTHER ==
[2019-08-15 13:42] LABS: T4, Free (Free Thyroxine) 0.79 ng/dL (0.78-2.19)
== END | disposition home or self-care (01) ==
LOC: LABWHC1 12:50
PROVIDERS: ATTEND Internal Medicine
DX: E03.9 Hypothyroidism, unspecified (principal)
CPT/HCPCS: 36415; 84439; 84443

== ENCOUNTER 2019-10-17 16:11 | Emergency (ER) | payer OTHER ==
[2019-10-17 16:27] VITALS: BP 149/102; PULSE 100; RESP 18; TEMP 99
[2019-10-17] MEDS ORDERED: KETOROLAC 15 MG/ML 1 ML VIAL IM STA (16:49)
--- NOTE | 2019-10-17 16:51 | ED ---
General Adult HPI - General Chief complaint: Neck Pain/Injury Stated complaint: neck pain Time Seen by Provider: 10/17/19 16:30 Source: patient, RN notes reviewed Mode of arrival: ambulatory Limitations: no limitations - History of Present Illness Initial comments: 29-year-old female with a past medical history of hypertension, thyroid disease presents to the emergency room for a chief complaint of tight sided neck pain times one week. States that about a week ago she was painting her son's room with her next to get sore. Patient states the next day it is very painful to look to the right. States that is it is painful to move her right shoulder as well. States the pain radiates from the neck to the right shoulder blade. Denies any chest pain or back pain. Denies shortness of breath. Patient does have a history of hypertension and is currently on her normal regimen. She denies headache. She denies fever. Patient has no other complaints at this time including shortness of breath, chest pain, abdominal pain, nausea or vomiting, headache, or visual changes. - Related Data Home Medications Medication Instructions Recorded Confirmed Levothyroxine Sodium [Synthroid] 150 mcg PO DAILY 05/20/16 08/14/18 hydroCHLOROthiazide [Hydrodiuril] 25 mg PO DAILY 08/14/18 08/14/18 Allergies Allergy/AdvReac Type Severity Reaction Status Date / Time No Known Allergies Allergy Verified 10/17/19 16:27 Review of Systems ROS Statement: Those systems with pertinent positive or pertinent negative responses have been documented in the HPI. ROS Other: All systems not noted in ROS Statement are negative. Past Medical History Past Medical History: Hypertension, Thyroid Disorder Additional Past Medical History / Comment(s): gestational diabetes, History of Any Multi-Drug Resistant Organisms: None Reported Past Surgical History: Adenoidectomy, Section, Cholecystectomy Additional Past Surgical History / Comment(s): [place] teeth removal, CERVICAL SURGERIES, Past Anesthesia/Blood Transfusion Reactions: Motion Sickness, Postoperative Nausea & Vomiting (PONV) Additional Past Anesthesia/Blood Transfusion Reaction / Comment(s): "states as child aspirated during adenoidectomy" Past Psychological History: No Psychological Hx Reported Smoking Status: Never smoker Past Alcohol Use History: None Reported Past Drug Use History: None Reported - Past Family History Mother Family Medical History: Hypertension General Exam Limitations: no limitations General appearance: alert, in no apparent distress Head exam: Present: atraumatic, normocephalic, normal inspection Eye exam: Present: normal appearance, PERRL, EOMI. Absent: scleral icterus, conjunctival injection, periorbital swelling ENT exam: Present: normal exam, mucous membranes moist Neck exam: Present: tenderness (Right-sided paraspinal cervical tenderness. No cervical spine tenderness.). Absent: meningismus, full ROM (Patient has range of motion limited to about 30 with rotation to the right. Full rotation to the left. Pain with full extension.), lymphadenopathy Respiratory exam: Present: normal lung sounds bilaterally. Absent: respiratory distress, wheezes, rales, rhonchi, stridor Cardiovascular Exam: Present: regular rate, normal rhythm, normal heart sounds. Absent: systolic murmur, diastolic murmur, rubs, gallop, clicks GI/Abdominal exam: Present: soft, normal bowel sounds. Absent: distended, tenderness, guarding, rebound, rigid Course Vital Signs 10/17/19 16:23 Temperature 99 F Pulse Rate 100 Respiratory 18 Rate Blood Pressure 149/102 O2 Sat by Pulse 100 Oximetry Medical Decision Making - Medical Decision Making Patient presents with right-sided musculoskeletal neck pain. Pain is reproducible. She did injure her neck while painting. Pain with rotation to the right. I discussed this is likely strain of the trapezius muscle given distribution. I did give follow-up to orthopedics as patient is concerned it may be a slipped disc. She does not have any numbness or tingling in her right hand. No shooting pain down the right arm. She will return here for any worsening symptoms. Patient denies any chance of , was given Toradol for pain. Disposition Clinical Impression: Strain of neck muscle Disposition: HOME SELF-CARE Condition: Good Instructions (If sedation given, give patient instructions): Cervical Strain (ED) Additional Instructions: Please alternate Motrin and Tylenol every 3 hours. You were given Toradol at 5 PM so please wait until 11 PM to have more Motrin. Follow-up with orthopedics. If symptoms do not resolve you may need MRI. Return to the emergency room for worsening symptoms. Is patient prescribed a controlled substance at d/c from ED?: No Referrals: Brian Duran DO [Primary Care Provider] - 1-2 days Ramesh Calderon DO [Doctor of Osteopathic Medicine] - 1-2 days Time of Disposition: 16:50
== END 2019-10-17 17:25 | disposition home or self-care (01) ==
LOC: EC 16:11
DX: S16.1XXA Strain of muscle, fascia and tendon at neck level, initial encounter (principal); I10 Essential (primary) hypertension; E07.9 Disorder of thyroid, unspecified; Z79.899 Other long term (current) drug therapy; Z79.890 Hormone replacement therapy; X58.XXXA Exposure to other specified factors, initial encounter
CPT/HCPCS: 99283; 96372; J1885

== ENCOUNTER 2019-10-20 20:06 | Emergency (ER) | payer OTHER ==
[2019-10-20 20:13] VITALS: BP 152/110; PULSE 99; RESP 18; TEMP 98.2
--- NOTE | 2019-10-20 20:49 | ED ---
General Adult HPI - General Chief complaint: Headache Stated complaint: Neck Pain Time Seen by Provider: 10/20/19 20:26 Source: patient, RN notes reviewed, old records reviewed Mode of arrival: ambulatory Limitations: no limitations - History of Present Illness Initial comments: 29-year-old female presenting with 1 week of right sided neck pain, worse with movement, radiating onto the right side of her head. She denies focal numbness or weakness. Denies nausea vomiting. No fever. She states this is worse when she is sitting and relieved by standing as well as certain positions to relieve her pain. On the right side. She states about 10 days ago she did use a pain spray or, denying any significant known overuse or injury to the right side of her neck, no fall, no trauma. - Related Data Home Medications Medication Instructions Recorded Confirmed Levothyroxine Sodium [Synthroid] 150 mcg PO DAILY 05/20/16 08/14/18 hydroCHLOROthiazide [Hydrodiuril] 25 mg PO DAILY 08/14/18 08/14/18 Previous Rx's Medication Instructions Recorded Cyclobenzaprine [Flexeril] 10 mg PO TID PRN #14 tab 10/17/19 diazePAM [Valium] 5 mg PO Q8HR PRN 3 Days #9 tab 10/20/19 Allergies Allergy/AdvReac Type Severity Reaction Status Date / Time Iodinated Contrast Media Allergy Swelling Verified 10/20/19 20:15 Review of Systems ROS Statement: Those systems with pertinent positive or pertinent negative responses have been documented in the HPI. ROS Other: All systems not noted in ROS Statement are negative. Past Medical History Past Medical History: Hypertension, Thyroid Disorder Additional Past Medical History / Comment(s): gestational diabetes, History of Any Multi-Drug Resistant Organisms: None Reported Past Surgical History: Adenoidectomy, Section, Cholecystectomy Additional Past Surgical History / Comment(s): [place] teeth removal, CERVICAL SURGERIES, Past Anesthesia/Blood Transfusion Reactions: Motion Sickness, Postoperative Nausea & Vomiting (PONV) Additional Past Anesthesia/Blood Transfusion Reaction / Comment(s): "states as child aspirated during adenoidectomy" Past Psychological History: No Psychological Hx Reported Smoking Status: Never smoker Past Alcohol Use History: None Reported Past Drug Use History: None Reported - Past Family History Mother Family Medical History: Hypertension General Exam Limitations: no limitations General appearance: alert, in no apparent distress Head exam: Present: atraumatic, normocephalic Eye exam: Present: normal appearance, PERRL ENT exam: Present: normal exam, other (No right-sided mastoid tenderness, normal external ear exam, normal tympanic membrane on the right.) Neck exam: Present: normal inspection, tenderness (Tenderness over the right paraspinal muscle, right trapezius, pain is reproducible on exam. No midline tenderness.). Absent: meningismus Respiratory exam: Present: normal lung sounds bilaterally. Absent: respiratory distress, wheezes Cardiovascular Exam: Present: regular rate, normal rhythm GI/Abdominal exam: Present: soft. Absent: distended, tenderness, guarding Neurological exam: Present: alert, oriented X3, CN II-XII intact. Absent: motor sensory deficit Psychiatric exam: Present: normal affect, normal mood Skin exam: Present: warm, dry, intact Course Vital Signs 10/20/19 20:09 Temperature 98.2 F Pulse Rate 99 Respiratory 18 Rate Blood Pressure 152/110 O2 Sat by Pulse 100 Oximetry Medical Decision Making - Medical Decision Making 29-year-old female with right-sided paraspinal neck spasm, occipital muscle tenderness. No alarming features on history or physical exam. Patient does have close outpatient follow-up. Will be prescribed Motrin and muscle relaxer. She will follow-up with her primary care physician if symptoms change or worsen she will seek reevaluation. Disposition Clinical Impression: Strain of neck muscle Disposition: HOME SELF-CARE Condition: Fair Instructions (If sedation given, give patient instructions): Cervical Strain (ED), Acute Neck Pain (ED) Prescriptions: diazePAM [Valium] 5 mg PO Q8HR PRN 3 Days #9 tab PRN Reason: Muscle Spasm Is patient prescribed a controlled substance at d/c from ED?: No Referrals: Brian Duran DO [Primary Care Provider] - 1-2 days Time of Disposition: 20:46
== END 2019-10-20 21:08 | disposition home or self-care (01) ==
LOC: EC 20:06
DX: S16.1XXA Strain of muscle, fascia and tendon at neck level, initial encounter (principal); I10 Essential (primary) hypertension; E07.9 Disorder of thyroid, unspecified; Z79.890 Hormone replacement therapy; Z79.899 Other long term (current) drug therapy; Z91.041 Radiographic dye allergy status; X58.XXXA Exposure to other specified factors, initial encounter
CPT/HCPCS: 99284

== ENCOUNTER → 2019-12-07 | Outpatient (CLI) | payer OTHER ==
[2019-12-07 22:54] LABS: T4, Free (Free Thyroxine) 1.3 ng/dL (0.80-1.80)
== END | disposition home or self-care (01) ==
LOC: LABWHC1 12:13
PROVIDERS: ATTEND Nurse Practitioner Family
DX: E06.3 Autoimmune thyroiditis (principal)
CPT/HCPCS: 36415; 83970; 84439; 84443; 84481

== ENCOUNTER → 2019-12-22 | Outpatient (CLI) | payer OTHER | END | disposition home or self-care (01) | LOC: LABWHC1 09:32 | PROVIDERS: ATTEND Family Medicine | DX: Z20.828 Contact with and (suspected) exposure to other viral communicable diseases (principal) | CPT/HCPCS: U0003; C9803 ==

== ENCOUNTER → 2020-03-29 | Outpatient (CLI) | payer OTHER | END | disposition home or self-care (01) | LOC: LABWHC1 07:31 | PROVIDERS: ATTEND Internal Medicine Endocrinology, Diabetes & Metabolism | DX: E03.8 Other specified hypothyroidism (principal) | CPT/HCPCS: 36415; 84443 ==

== ENCOUNTER → 2020-06-06 | Outpatient (CLI) | payer OTHER | END | disposition home or self-care (01) | LOC: LABWHC1 15:00 | PROVIDERS: ATTEND Internal Medicine Endocrinology, Diabetes & Metabolism | DX: E03.8 Other specified hypothyroidism (principal) | CPT/HCPCS: 36415; 84443 ==

== ENCOUNTER → 2020-07-16 | Outpatient (CLI) | payer OTHER | END | disposition home or self-care (01) | LOC: LABWHC1 14:27 | PROVIDERS: ATTEND Internal Medicine Endocrinology, Diabetes & Metabolism | DX: E03.8 Other specified hypothyroidism (principal) | CPT/HCPCS: 36415; 84443 ==

== ENCOUNTER → 2020-08-29 | Outpatient (CLI) | payer OTHER | END | disposition home or self-care (01) | LOC: LABWHC1 08:33 | PROVIDERS: ATTEND Ophthalmology | DX: G70.00 Myasthenia gravis without (acute) exacerbation (principal) | CPT/HCPCS: 36415; 83519 ==

== ENCOUNTER → 2020-09-05 | Outpatient (CLI) | payer OTHER | END | disposition home or self-care (01) | LOC: LABWHC1 15:26 | PROVIDERS: ATTEND Internal Medicine Endocrinology, Diabetes & Metabolism | DX: E03.8 Other specified hypothyroidism (principal) | CPT/HCPCS: 36415; 84443 ==

== ENCOUNTER 2020-10-14 12:00 | Emergency (ER) | payer OTHER ==
[2020-10-14 12:05] VITALS: RESP 18
[2020-10-14] MEDS ORDERED: SODIUM CHLORIDE 0.9% 1,000 ML IV STA (12:26)
[2020-10-14 12:36] LABS: Basophils # (A) 0.1 k/uL (0-0.2); Basophils % (A) 1 %; Eosinophils # (A) 0.3 k/uL (0-0.7); Eosinophils % (A) 3 %; HCT 42.3 % (34.0-46.0); HGB 14.6 gm/dL (11.4-16.0); Lymphocytes # (A) 1.2 k/uL (1.0-4.8); Lymphocytes % (A) 15 %; MCH 30.8 pg (25.0-35.0); MCHC 34.4 g/dL (31.0-37.0); MCV 89.5 fL (80.0-100.0); Mean Platelet Volume 6.8; Monocytes # (A) 0.5 k/uL (0-1.0); Monocytes % (A) 6 %; Neutrophils % (A) 73 %; Platelet Count 233 k/uL (150-450); RBC 4.73 m/uL (3.80-5.40); WBC 8.2 k/uL (3.8-10.6)
[2020-10-14 12:44] LABS: Partial Thromboplastin Time 26.2 sec (22.0-30.0); Prothrombin Time 10.3 sec (9.0-12.0)
[2020-10-14 12:46] LABS: Appearance,Urine Clear (Clear); Bilirubin,Urine Negative (Negative); Blood,Urine Trace (Negative); Color,Urine Colorless; Glucose,Urine (UA) Negative (Negative); Ketones,Urine Negative (Negative); Leukocyte Esterase,Urine Negative (Negative); Nitrite,Urine Negative (Negative); PH, Urine 6.5 (5.0-8.0); Protein,Urine Negative (Negative); RBC,Urine 1 /hpf (0-5); Specific Gravity,Urine 1.003 (1.001-1.035); Squamous Epithelial Cell,Urine <1 /hpf (0-4); Urobilinogen,Urine <2.0 mg/dL (<2.0); WBC,Urine <1 /hpf (0-5)
[2020-10-14 12:49] LABS: ALT 14 U/L (4-34); AST 22 U/L (14-36); African American GFR (CKD) >90 (>60 ml/min/1.73 sqM); Albumin 4.8 g/dL (3.5-5.0); Alkaline Phosphatase 86 U/L (38-126); Anion Gap 13 mmol/L; Blood Urea Nitrogen 13 mg/dL (7-17); Calcium 9.8 mg/dL (8.4-10.2); Carbon Dioxide 23 mmol/L (22-30); Chloride 103 mmol/L (98-107); Glucose 101 mg/dL (74-99); Non-African American GFR(CKD) >90 (>60 ml/min/1.73 sqM); Potassium 4.3 mmol/L (3.5-5.1); Sodium 139 mmol/L (137-145); Total Bilirubin 0.7 mg/dL (0.2-1.3); Total Protein 7.6 g/dL (6.3-8.2)
--- NOTE | 2020-10-14 13:22 | ED ---
General Adult HPI - General Chief complaint: Dizziness Stated complaint: Dizziness Time Seen by Provider: 10/14/20 12:07 Source: patient, RN notes reviewed, old records reviewed Mode of arrival: ambulatory Limitations: no limitations - History of Present Illness Initial comments: 30-year-old female who presented with increased dizziness. Patient does have history of previous thalamic CVA. She is on aspirin. She states over the past 3-4 days she's had increased dizziness. This does seem to be somewhat positional. Patient had MRI confirmation of CVA in 2019. She is currently on aspirin. She denies limb weakness. She states that her dizziness is worse and more constant over the past several days. - Related Data Home Medications Medication Instructions Recorded Confirmed hydroCHLOROthiazide [Hydrodiuril] 25 mg PO DAILY 08/14/18 10/14/20 Aspirin EC [Ecotrin Low Dose] 81 mg PO DAILY 10/14/20 10/14/20 Ibuprofen [Motrin] 800 mg PO TID PRN 10/14/20 10/14/20 Levothyroxine Sodium [Synthroid] 175 mcg PO DAILY 10/14/20 10/14/20 Meclizine [Antivert] 12.5 - 25 mg PO QID PRN 10/14/20 10/14/20 Metoprolol Tartrate [Lopressor] 25 mg PO DAILY 10/14/20 10/14/20 Previous Rx's Medication Instructions Recorded Cyclobenzaprine [Flexeril] 10 mg PO TID PRN #14 tab 10/17/19 Allergies Allergy/AdvReac Type Severity Reaction Status Date / Time Gadolinium-Containing Allergy Swelling Verified 10/14/20 13:58 Contrast Medi Review of Systems ROS Statement: Those systems with pertinent positive or pertinent negative responses have been documented in the HPI. ROS Other: All systems not noted in ROS Statement are negative. Past Medical History Past Medical History: CVA/TIA, Hypertension, Thyroid Disorder Additional Past Medical History / Comment(s): gestational diabetes, History of Any Multi-Drug Resistant Organisms: None Reported Past Surgical History: Adenoidectomy, Section, Cholecystectomy Additional Past Surgical History / Comment(s): [place] teeth removal, CERVICAL SURGERIES, Past Anesthesia/Blood Transfusion Reactions: Motion Sickness, Postoperative Nausea & Vomiting (PONV) Additional Past Anesthesia/Blood Transfusion Reaction / Comment(s): "states as child aspirated during adenoidectomy" Past Psychological History: No Psychological Hx Reported Smoking Status: Never smoker Past Alcohol Use History: None Reported Past Drug Use History: None Reported - Past Family History Mother Family Medical History: Hypertension General Exam Limitations: no limitations General appearance: alert, in no apparent distress Head exam: Present: atraumatic, normocephalic Eye exam: Present: normal appearance, PERRL ENT exam: Present: mucous membranes dry Neck exam: Present: normal inspection. Absent: tenderness, meningismus Respiratory exam: Present: normal lung sounds bilaterally. Absent: respiratory distress, wheezes Cardiovascular Exam: Present: regular rate, normal rhythm GI/Abdominal exam: Present: soft. Absent: distended, tenderness, guarding Extremities exam: Present: normal inspection, normal capillary refill. Absent: pedal edema, calf tenderness Neurological exam: Present: alert, oriented X3, CN II-XII intact, other (No ataxia, normal [id number] bilaterally, normal [id number], no sensory d eficit, no limb weakness.). Absent: motor sensory deficit Psychiatric exam: Present: normal affect, normal mood Skin exam: Present: warm, dry, intact. Absent: cyanosis, diaphoretic Course Vital Signs 10/14/20 10/14/20 12:01 13:59 Temperature 98.7 F Pulse Rate 95 100 Respiratory 18 18 Rate Blood Pressure 138/105 129/90 O2 Sat by Pulse 98 99 Oximetry EKG Findings - EKG Comments: EKG Findings:: EKG: Normal sinus rhythm with sinus arrhythmia, rate of 78, NH interval 180, QRS duration 92, QTC 414, no ST segment elevation. Medical Decision Making - Medical Decision Making 30-year-old female presenting with dizziness as chief complaint over the past 4 days. She does have a remote history of CVA. I did perform laboratory testing, EKG, and CT CT angiography on this patient. She is currently on 81 mg aspirin. She has no localizing features on exam. Her vital signs are stable with some mild hypertension. She has a CT which shows previous infarction but no acute findings, no hemorrhage, no mass effect. CT angiography negative for aneurysmal change or occlusion. Given the duration of symptoms and previous history of vertigo I did offer admission for MRI and neurology consultation versus outpatient follow-up with the patient's primary neurologist out of [facility]. Patient prefers discharge with outpatient follow-up. She will return with any changing. - Lab Data Result diagrams: 10/14/20 12:28 10/14/20 12:28 Lab Results 10/14/20 10/14/20 10/14/20 Range/Units 12:28 12:28 12:28 WBC 8.2 (3.8-10.6) k/uL RBC 4.73 (3.80-5.40) m/uL Hgb 14.6 (11.4-16.0) gm/dL Hct 42.3 (34.0-46.0) % MCV 89.5 (80.0-100.0) fL MCH 30.8 (25.0-35.0) pg MCHC 34.4 (31.0-37.0) g/dL RDW 13.0 (11.5-15.5) % Plt Count 233 (150-450) k/uL MPV 6.8 Neutrophils % 73 % Lymphocytes % 15 % Monocytes % 6 % Eosinophils % 3 % Basophils % 1 % Neutrophils # 6.0 (1.3-7.7) k/uL Lymphocytes # 1.2 (1.0-4.8) k/uL Monocytes # 0.5 (0-1.0) k/uL Eosinophils # 0.3 (0-0.7) k/uL Basophils # 0.1 (0-0.2) k/uL PT 10.3 (9.0-12.0) sec INR 1.0 (<1.2) APTT 26.2 (22.0-30.0) sec Sodium (137-145) mmol/L Potassium (3.5-5.1) mmol/L Chloride (98-107) mmol/L Carbon Dioxide (22-30) mmol/L Anion Gap mmol/L BUN (7-17) mg/dL Creatinine (0.52-1.04) mg/dL Est GFR (CKD-EPI)AfAm (>60 ml/min/1.73 sqM) Est GFR (CKD-EPI)NonAf (>60 ml/min/1.73 sqM) Glucose (74-99) mg/dL Calcium (8.4-10.2) mg/dL Total Bilirubin (0.2-1.3) mg/dL AST (14-36) U/L ALT (4-34) U/L Alkaline Phosphatase (38-126) U/L Troponin I (0.000-0.034) ng/mL Total Protein (6.3-8.2) g/dL Albumin (3.5-5.0) g/dL Urine Color Colorless Urine Appearance Clear (Clear) Urine pH 6.5 (5.0-8.0) Ur Specific [place] 1.003 (1.001-1.035) Urine Protein Negative (Negative) Urine Glucose (UA) Negative (Negative) Urine Ketones Negative (Negative) Urine Blood Trace H (Negative) Urine Nitrite Negative (Negative) Urine Bilirubin Negative (Negative) Urine Urobilinogen <2.0 (<2.0) mg/dL Ur Leukocyte Esterase Negative (Negative) Urine RBC 1 (0-5) /hpf Urine WBC <1 (0-5) /hpf Ur Squamous Epith Cells <1 (0-4) /hpf Urine HCG, Qual (Not Detectd) 10/14/20 10/14/20 10/14/20 Range/Units 12:28 12:28 12:28 WBC (3.8-10.6) k/uL RBC (3.80-5.40) m/uL Hgb (11.4-16.0) gm/dL Hct (34.0-46.0) % MCV (80.0-100.0) fL MCH (25.0-35.0) pg MCHC (31.0-37.0) g/dL RDW (11.5-15.5) % Plt Count (150-450) k/uL MPV Neutrophils % % Lymphocytes % % Monocytes % % Eosinophils % % Basophils % % Neutrophils # (1.3-7.7) k/uL Lymphocytes # (1.0-4.8) k/uL Monocytes # (0-1.0) k/uL Eosinophils # (0-0.7) k/uL Basophils # (0-0.2) k/uL PT (9.0-12.0) sec INR (<1.2) APTT (22.0-30.0) sec Sodium 139 (137-145) mmol/L Potassium 4.3 (3.5-5.1) mmol/L Chloride 103 (98-107) mmol/L Carbon Dioxide 23 (22-30) mmol/L Anion Gap 13 mmol/L BUN 13 (7-17) mg/dL Creatinine 0.78 (0.52-1.04) mg/dL Est GFR (CKD-EPI)AfAm >90 (>60 ml/min/1.73 sqM) Est GFR (CKD-EPI)NonAf >90 (>60 ml/min/1.73 sqM) Glucose 101 H (74-99) mg/dL Calcium 9.8 (8.4-10.2) mg/dL Total Bilirubin 0.7 (0.2-1.3) mg/dL AST 22 (14-36) U/L ALT 14 (4-34) U/L Alkaline Phosphatase 86 (38-126) U/L Troponin I <0.012 (0.000-0.034) ng/mL Total Protein 7.6 (6.3-8.2) g/dL Albumin 4.8 (3.5-5.0) g/dL Urine Color Urine Appearance (Clear) Urine pH (5.0-8.0) Ur Specific [place] (1.001-1.035) Urine Protein (Negative) Urine Glucose (UA) (Negative) Urine Ketones (Negative) Urine Blood (Negative) Urine Nitrite (Negative) Urine Bilirubin (Negative) Urine Urobilinogen (<2.0) mg/dL Ur Leukocyte Esterase (Negative) Urine RBC (0-5) /hpf Urine WBC (0-5) /hpf Ur Squamous Epith Cells (0-4) /hpf Urine HCG, Qual Not Detected (Not Detectd) Disposition Clinical Impression: Dehydration, Vertigo Disposition: HOME SELF-CARE Condition: Good Instructions (If sedation given, give patient instructions): Dizziness (ED) Additional Instructions: Please follow up with your neurologist at [facility]. Please return with any worsening or changing symptoms. Is patient prescribed a controlled substance at d/c from ED?: No Referrals: Brian Duran DO [Primary Care Provider] - 1-2 days Time of Disposition: 14:59
--- NOTE | 2020-10-14 14:12 | CT ---
EXAMINATION TYPE: CT brain wo con DATE OF EXAM: 10/14/2020 COMPARISON: CT head and CTA head and neck 08/14/2018 HISTORY: Dizziness with prior CVA. CT DLP: 1750.5 mGycm. Automated Exposure Control for Dose Reduction was Utilized. TECHNIQUE: CT scan of the head is performed without contrast. Numerous axial CT images of the head fr om the skull base to the vertex were obtained without the position of intravenous contrast. 2-D coron al and sagittal reformats were obtained. FINDINGS: There is no acute intracranial hemorrhage, mass effect, or midline shift identified. The ventricles and sulci are within normal limits in size. The globes are intact and the visualized sin uses are clear. Unchanged chronic lacunar infarct or perivascular space within the posterior limb of the right internal capsule. Unchanged area of decreased attenuation within the right periventricular white matter likely chronic infarct. Partial opacification of the left ethmoid air cells. Mastoid air cells are clear. Bilateral globes appear symmetric and unremarkable. IMPRESSION: No acute intracranial hemorrhage, mass effect, or midline shift is seen.
--- NOTE | 2020-10-14 14:33 | CT ---
EXAMINATION TYPE: CT angio head neck DATE OF EXAM: 10/14/2020 HISTORY: Dizziness with prior CVA. COMPARISON: CTA head and neck 08/14/2018 CT DLP: 1750.5 mGycm. Automated Exposure Control for Dose Reduction was Utilized. TECHNIQUE: CTA scan of the neck is performed with IV Contrast, patient injected with 65 mL of Isovue 370, axial images are obtained, coronal and sagittal reformatted images are reviewed. 3D reconstruct ed images are created on an independent workstation and reviewed. NASCET criteria was utilized to det ermine degrees of stenosis. FINDINGS: Carotid/Vascular Structures: Bilateral common carotid arteries and internal carotid arteries are patent without aneurysm. Mildly t ortuous cervical internal carotid arteries. Bilateral vertebral arteries are patent without aneurysm. Anterior and middle cerebral arteries are patent without aneurysm. Basilar artery is patent without aneurysm. Posterior cerebral arteries are patent without aneurysm. Dural venous sinuses are patent. Other: No significant abnormality. IMPRESSION: No high-grade stenosis, occlusion, or aneurysm involving the carotid arteries, vertebral arteries, or major branches of the [place]. NASCET criteria was used in interpretation of this exam?
[2020-10-14 15:05] VITALS: BP 143/98; PULSE 99; TEMP 98.1
== END 2020-10-14 15:02 | disposition home or self-care (01) ==
LOC: EC 12:00
DX: R42 Dizziness and giddiness (principal); E86.0 Dehydration; I10 Essential (primary) hypertension; E07.9 Disorder of thyroid, unspecified; Z79.82 Long term (current) use of aspirin; Z86.73 Personal history of transient ischemic attack (TIA), and cerebral infarction without residual deficits; Z90.49 Acquired absence of other specified parts of digestive tract; Z90.89 Acquired absence of other organs; Z88.8 Allergy status to other drugs, medicaments and biological substances
CPT/HCPCS: 36415; 70450; 70496; 70498; 80053; 81001; 81025; 84484; 85025; 85610; 85730; 93005; 96360; 99284

== ENCOUNTER → 2021-12-10 | Outpatient (CLI) | payer OTHER ==
--- NOTE | 2022-01-19 17:34 | P.CEMON ---
30 day event monitor shows sinus mechanism Sinus tachycardia Minimal [place] prolongation in the early hours of morning and at night Sinus arrhythmia No arrhythmias
--- NOTE | 2022-01-21 08:57 | EM ---
Addendum entered and electronically signed by Mario Perez MD 01/19/22 17:52: Patient wore this monitor for 10 days only Original Note: 30 day event monitor shows sinus mechanism Sinus tachycardia Minimal DC prolongation in the early hours of morning and at night Sinus arrhythmia No arrhythmias MTDD
== END | disposition home or self-care (01) ==
LOC: RADECHMAIN 07:53
PROVIDERS: ATTEND Internal Medicine
DX: R00.0 Tachycardia, unspecified (principal); I49.8 Other specified cardiac arrhythmias; R00.2 Palpitations
CPT/HCPCS: 93270